=== PATIENT | male | born 1950 | race Caucasian/White ===

== ENCOUNTER 2018-02-23 13:58 | Emergency (ER) | payer MEDICARE, SELFPAY ==
[2018-02-23 14:00] VITALS: BP 136/82; PULSE 52; RESP 16; TEMP 36.7; O2SAT 98
--- NOTE | 2018-02-23 14:32 | DI.REPORT_ITS ---
SYMPTOM/DIAGNOSIS: PUNCTURE LT THENAR EMINENCE AT MCP JOINT, BALJEET NAIL LEFT HAND: There is no evidence of a soft tissue foreign body. There is no evidence of a fracture or dislocation.
--- NOTE | 2018-02-23 16:19 | ED.GENADUL_ITS ---
Disposition Clinical Impression: Puncture wound Disposition: HOME Condition: Good Instructions: Puncture Wound (ED) Additional Instructions: Please take the antibiotic as directed. No matter what it is imperative that he follow-up here in the emergency department or with your primary care provider tomorrow to reevaluate your wound on your hand. If you notice any worsening of your symptoms worsening of your pain, redness, swelling, fever chills return immediately to the emergency department. If you notice any worsening of your symptoms, or any new symptoms such as vomiting, diarrhea, fever, chills, shortness of breath, chest pain, numbness, weakness, or fainting , please return immediately to the emergency department for reevaluation. Please follow up with your primary care provider as soon as possible for reassessment and reevaluation. As always, it was a pleasure participating in your medical care today. Prescriptions: Cephalexin [Keflex] 500 mg PO HOLD #40 cap Referrals: Rebecca Beltrán MD [Primary Care Provider] - Medical Decision Making - Medical Decision Making This is a pleasant 67-year-old male who presents for evaluation of puncture wound. Roughly 3 hours prior to arrival a slightly tanja nail was accidentally injected into his left thenar eminence. He immediately pulled it out. There was some bleeding at the time. He has been icing the wound ever since but is noted some mild pain on the dorsal aspect of his thenar eminence at the MCP joint. There is pain with movement. X-ray was performed of the hand, and no significant abnormalities were noted. No evidence of foreign bodies. I did review the images personally with the radiologist, there is no evidence of foreign body. I did contact Dr. Meza, and discussed the case with him. He does not recommend bringing the patient to an OR for surgical washout, but he does recommend starting antibiotics which I do agree with. I think it is imperative that this patient of close follow-up. The patient's hand was irrigated with an 18-gauge catheter with a chlorhexidine rinse. He was injected directly into the wound site, to extravasate any potential foreign bodies. None were removed, the area was irrigated with copious amounts normal saline. The patient has done well. We have given him his first dose of Keflex here, will be discharged home with Keflex. We had a long discussion regarding red flags which to return the patient understands. I have discussed with him the imperative nature of returning tomorrow to either the ER or his primary care provider for reevaluation of his wound to evaluate for any potential worsening infection. I have extensively reviewed the treatment plan and discharge instructions with the patient. I have addressed all patient concerns at this time. The patient was made aware of what symptoms to monitor for that would warrant a return to the emergency department. Discussed the plan with the patient, they demonstrate verbal understanding and agreement with our assessment and plan at this time. History of Present Illness - General Chief complaint: Laceration Stated complaint: PUNCTURE WOUND Time Seen by Provider: 02/23/18 14:31 - History of Present Illness Initial comments: This is a pleasant 67-year-old male who presents for evaluation of left hand pain. He is right-hand dominant. He states that roughly 3-4 hours prior to arrival he was making an addition on the house when a minimally tanja nail stabbed into his left hand, by his thenar eminence. He states that he immediately pulled it out within 1 second. Since then he has had mild pain and swelling, but oddly enough the pain is on the dorsal aspect of his hand whereas the puncture site was on the ventral aspect. Patient denies any fevers or chills. He denies any immunosuppression or immunosuppression medications. The patient denies any other complaints at this time. No radiation of his pain. Pain is made worse with movement. It is improved with ice. Tetanus shot is not up-to-date at this time. - Related Data Hydrocortisone Acetate [Hydrocortisone] 28 gm TP DAILY PRN PRN 06/15/16 Atorvastatin [Lipitor] 20 mg PO HS 09/22/16 Pantoprazole [Protonix] 40 mg PO DAILY 09/22/16 Sildenafil [Viagra] 100 mg PO PRN PRN 09/22/16 Mirabegron [Myrbetriq] 50 mg PO DAILY #90 tab-cap 03/29/17 Cephalexin [Keflex] 500 mg PO HOLD #40 cap 02/23/18 Allergies Allergy/AdvReac Type Severity Reaction Status Date / Time No Known Drug Allergies Allergy Unverified 12/19/17 13:28 Review of Systems Other: 10 point review of systems was performed, pertinent positives and negatives are noted in the history of present illness. General Exam - Other Other exam information: 1.Const: Well-nourished, Well-developed, appearing stated age 2.Eyes: PERRL, no conjunctival injection, and symmetrical lids. 3.ENT: Atraumatic external nose and ears. Moist MM. Neck: Symmetric, trachea midline, No thyromegaly. 4.CVS: +S1/S2, No murmurs or gallops. Peripheral pulses 2+ and equal in all extremities. Brisk capillary refill in all extremities. 5.RESP: Unlabored respiratory effort. Clear to auscultation bilaterally. No wheezes rales or rhonchi 6.GI: Soft, Nontender/Nondistended, No hepatosplenomegaly. No guarding or rebound. 7.MSK: Normocephalic the patient demonstrates a small 1 cm puncture wound on the thenar eminence of the left hand on the volar aspect. No swelling, or active bleeding. No erythema. The patient's pain is actually located on the dorsal aspect of the MCP joint where there is no evidence of perforation, or puncture wound. Pain is present but mild for movement of the left thumb in all directions. He still demonstrates good thumb strength in flexion extension and opposition. Abduction and abduction as well. He is able to contact all fingers well and demonstrates normal movements and good sensation and two-point discrimination. No crepitus is noted. No foreign bodies are present. 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 Sensation grossly intact, no focal neurologic deficits. .Psych: (AAO) x3. Appropriate mood and affect Course Vital Signs - 24 hr 02/23/18 14:00 Temperature 36.7 C Pulse 52 L Respiratory 16 Rate Blood Pressure 136/82 Pulse Oximetry 98
[2018-02-23] MEDS: Cephalexin 500 MG CAP PO (16:22)
== END 2018-02-23 16:33 | disposition home or self-care (01) ==
PROVIDERS: Emergency Provider Student in an Organized Health Care Education/Training Program; PCP Family Medicine
DX: S61.032A Puncture wound without foreign body of left thumb without damage to nail, initial encounter (principal); W29.4XXA Contact with nail gun, initial encounter; J44.9 Chronic obstructive pulmonary disease, unspecified
CPT/HCPCS: 73130; 90471; 99283; 99284

== ENCOUNTER 2018-08-17 07:43 | Outpatient (REF) | payer MEDICARE, SELFPAY ==
[2018-08-17 12:54] LABS: Anion Gap 8.4 mmol/L (3-11); BUN 15 mg/dL (7-18); CO2 29.6 mmol/L (21.0-32.0); CREATININE 1.17 mg/dL (0.70-1.30); Chloride 104 mmol/L (98-107); Cholesterol 175 mg/dL (50-200); Glucose 105 mg/dL (70-100); HDL Cholesterol 38 mg/dL (40-60); LDL CHOLESTEROL 121 mg/dL (<100); Potassium 4.1 mmol/L (3.5-5.1); Sodium 142 mmol/L (136-145); TSH (W/Ref FT4) 4.42 uIU/mL (0.358-3.74); Triglyceride 101 mg/dL (30-150)
[2018-08-17 13:21] LABS: FREE T4 1.05 ng/dL (0.76-1.46)
== END 2018-08-17 08:03 ==
LOC: NCHCN 07:43
PROVIDERS: PCP Family Medicine; Visit Provider Family Medicine
DX: E78.5 Hyperlipidemia, unspecified (principal); R94.6 Abnormal results of thyroid function studies; Z79.899 Other long term (current) drug therapy
CPT/HCPCS: 80048; 80061; 83721; 84439; 84443

== ENCOUNTER → 2018-10-02 08:25 | Outpatient (BNVA) | payer MEDICARE, SELFPAY | PROVIDERS: PCP Family Medicine; Referring Provider Family Medicine; Visit Provider Nurse Practitioner Gerontology | DX: N32.81 Overactive bladder (principal); N40.1 Benign prostatic hyperplasia with lower urinary tract symptoms; N13.8 Other obstructive and reflux uropathy | CPT/HCPCS: 51798; 81003; 99214 ==

== ENCOUNTER → 2018-11-29 08:46 | Outpatient (BNVA) | payer MEDICARE, SELFPAY | PROVIDERS: PCP Family Medicine; Visit Provider Nurse Practitioner Gerontology | DX: R35.0 Frequency of micturition (principal) | CPT/HCPCS: 99213 ==

== ENCOUNTER 2019-08-22 07:36 | Outpatient (REF) | payer MEDICARE, SELFPAY ==
[2019-08-22 12:18] LABS: Hemoglobin A1C 5.8 % (3.8-5.6)
[2019-08-22 12:34] LABS: ALT 26 U/L (16-63); AST 16 U/L (15-37); Albumin 3.9 g/dL (3.4-5.0); Alkaline Phosphatase 83 U/L (46-116); Anion Gap 7.9 mmol/L (3-11); BUN 14 mg/dL (7-18); CO2 29.1 mmol/L (21.0-32.0); CREATININE 1.01 mg/dL (0.70-1.30); Calcium 8.5 mg/dL (8.5-10.1); Calculated LDL 114 mg/dL (<100); Chloride 108 mmol/L (98-107); Cholesterol 164 mg/dL (<200); Glucose 101 mg/dL (74-106); HDL Cholesterol 35 mg/dL (40-60); Potassium 4.8 mmol/L (3.5-5.1); Sodium 145 mmol/L (136-145); Total Protein 6.6 g/dL (6.4-8.2); Triglyceride 75 mg/dL (<150)
== END 2019-08-22 07:56 ==
LOC: NCHCN 07:36
PROVIDERS: PCP Family Medicine; Visit Provider Family Medicine
DX: E78.5 Hyperlipidemia, unspecified (principal); R73.03 Prediabetes
CPT/HCPCS: 80053; 80061; 83036

== ENCOUNTER → 2019-09-24 13:51 | Outpatient (BNVA) | payer MEDICARE, SELFPAY | PROVIDERS: PCP Family Medicine; Referring Provider Family Medicine; Visit Provider Nurse Practitioner Gerontology | DX: R35.0 Frequency of micturition (principal); N52.9 Male erectile dysfunction, unspecified | CPT/HCPCS: 99213 ==

== ENCOUNTER 2020-08-27 07:50 | Outpatient (REF) | payer OTHER, SELFPAY ==
[2020-08-27 14:33] LABS: Anion Gap 8.1 mmol/L (3-11); BUN 22 mg/dL (7-18); CO2 27.9 mmol/L (21.0-32.0); CREATININE 1.1 mg/dL (0.70-1.30); Calcium 8.9 mg/dL (8.5-10.1); Calculated LDL 179 mg/dL (<100); Chloride 106 mmol/L (98-107); Cholesterol 240 mg/dL (<200); Glucose 107 mg/dL (74-106); HDL Cholesterol 37 mg/dL (40-60); Potassium 4.3 mmol/L (3.5-5.1); Sodium 142 mmol/L (136-145); TSH (W/Ref FT4) 4.39 uIU/mL (0.36-3.74); Triglyceride 121 mg/dL (<150)
[2020-08-27 14:49] LABS: FREE T4 0.89 ng/dL (0.76-1.46)
== END 2020-08-27 07:51 | disposition home or self-care (01) ==
LOC: NCHCN 07:50
PROVIDERS: PCP Family Medicine; Visit Provider Family Medicine
DX: R73.03 Prediabetes (principal); R94.6 Abnormal results of thyroid function studies; E78.5 Hyperlipidemia, unspecified; Z79.899 Other long term (current) drug therapy
CPT/HCPCS: 80048; 80061; 83036; 84439; 84443

== ENCOUNTER 2020-12-03 09:05 | Outpatient (REF) | payer MEDICARE, SELFPAY ==
[2020-12-03 16:12] LABS: Calculated LDL 103 mg/dL (<100); Cholesterol 157 mg/dL (<200); HDL Cholesterol 35 mg/dL (40-60); Triglyceride 95 mg/dL (<150)
== END 2020-12-03 09:06 | disposition home or self-care (01) ==
LOC: NCHCN 09:05
PROVIDERS: PCP Family Medicine; Visit Provider Family Medicine
DX: E78.5 Hyperlipidemia, unspecified (principal); Z79.899 Other long term (current) drug therapy
CPT/HCPCS: 80061

== ENCOUNTER 2021-11-03 17:14 | Outpatient (REF) | payer MEDICARE, SELFPAY ==
[2021-11-03 22:37] LABS: Hemoglobin A1C 5.9 % (<5.7)
[2021-11-03 22:48] LABS: Anion Gap 6.1 mmol/L (3-11); BUN 21 mg/dL (7-18); CO2 29.9 mmol/L (21.0-32.0); CREATININE 1.2 mg/dL (0.70-1.30); Calcium 8.7 mg/dL (8.5-10.1); Calculated LDL 103 mg/dL (<100); Chloride 106 mmol/L (98-107); Cholesterol 157 mg/dL (<200); Estimated GFR 59.86 (mL/min/1.73m2); Glucose 101 mg/dL (74-106); HDL Cholesterol 37 mg/dL (40-60); Potassium 5.1 mmol/L (3.5-5.1); Sodium 142 mmol/L (136-145); Triglyceride 88 mg/dL (<150)
== END 2021-11-03 17:15 | disposition home or self-care (01) ==
LOC: NCHCN 17:14
PROVIDERS: PCP Family Medicine; Visit Provider Family Medicine
DX: E78.5 Hyperlipidemia, unspecified (principal); R73.03 Prediabetes; Z79.899 Other long term (current) drug therapy; F10.10 Alcohol abuse, uncomplicated
CPT/HCPCS: 80048; 80061; 83036

== ENCOUNTER → 2022-02-04 00:48 | Outpatient (CLI) | payer MEDICARE, SELFPAY ==
--- NOTE | 2022-02-04 | DI.US_ITS ---
Exam(s) US AAA SCREENING EXAM: US AAA SCREENING CLINICAL HISTORY: SCREENING FOR AAA,FORMER SMOKER, Z87.891 COMPARISON: US RENAL ULTRASOUND from 10/01/2010 FINDINGS: There is no evidence of abdominal aortic aneurysm. Maximum external diameter of the abdominal aorta is 2.5 cm, proximally. Distal aorta tapers normally. The visualized common iliac arteries are not d ilated. IMPRESSION: No evidence of abdominal aortic aneurysm. DATA REPOSITORY:
--- OUTSIDE RECORDS SUMMARY | 2022-02-04 00:53 | XMS_ITS | Encounter Summary ---
:[address] [facility] Address [address] [place] [address] Care Team Providers Name Role Phone Unavailable Primary Care Provider Unavailable Encounter Details Date Type Department Care Team Description 08/19/2016 Hospital Encounter [facility] Unknown, Provider, [facility] [phone] [place] [address] (Work) [phone] Social History Tobacco Use Types Packs/Day Years Used Date Never Assessed Sex Assigned at Date Recorded Not on file documented as of this encounter Discharge Disposition Disposition Code Departure Means Destination Home or Self [facility] documented in this encounter Plan of Treatment Not on filedocumented as of this encounter Visit Diagnoses Not on filedocumented in this encounter
--- OUTSIDE RECORDS SUMMARY | 2022-02-04 00:54 | XMS_ITS | Encounter Summary ---
:1950 Author Organization [facility] Address [address] [place] [address] Care Team Providers Name Role Phone Unknown, Provider Primary Care Provider Encounter Details Date Type Department Care Team Description 08/19/2016 Results Only [facility]ico Ricardo MD [phone] [facility] [address] [place] [address] (Wo rk) Social History Tobacco Use Types Packs/Day Years Used Date Never Assessed Sex Assigned at Date Recorded Not on file documented as of this encounter Plan of Treatment Not on filedocumented as of this encounter Procedures Procedure Name Priority Date/Time Associated Diagnosis Comme [facility] SURGICAL PATHOLOGY Routine 08/19/2016 20:25 Resul ts for this EST procedure are i n the results section. documented in this encounter Results SURGICAL PATHOLOGY (08/19/2016 20:25 EST) Pathology Report: SURGICAL PATHOLOGY REPORT [facility] Reports generated via electronic interface contain gustavo ginal data; LABORATORY however they are lacking the format of the original re port. SERVICES Caution should be taken when reading/interpreting unfo rmatted reports. Name: ? ASIA BRITO ? Accession #: ? [id number] ? : ? 1950 (Age: 66) ??M ? Collect Date: ? 08/19/2016 ? Location: ? [facility] ? Receive Date: ? 08/20/2016 ? Provider: MELVIN HENAO MD Copy to: ? Final Pathologic Diagnosis: A. ??DUODENUM, 2ND PORTION, BIOPSY: - Duodenal mucosa with no specific pathologic features . B. ??STOMACH, ANTRUM AND BODY, BIOPSY: - Gastric antral mucosa with reactive (chemical) gastr opathy. - Gastric body mucosa with no specific pathologic feat ures. C. ??ESOPHAGUS, DISTAL, BIOPSY: - Squamocolumnar junctional mucosa with reflux esophag itis. - Negative for intestinal metaplasia; Negative for dys plasia. D. ??ESOPHAGUS, MID, BIOPSY: - Superficial fragment of sq uamous mucosa with no specific pathologic features. Document reviewed and electronically signed by: ANTONIO IRIZARRY MD Report ??Date: 08/24/2016 16:45 By the signature above, the attending physician certif ies that he/she has personally conducted a gross and/or microscopic examin ation of the described specimens and rendered or confirmed the above diagnosi s. Specimen(s) Received: A. ??2nd portion of duodenum B. ??Antrum and body C. ??Distal esophagus D. ??Mid esophagus Clinical History: Odynophagia; GERD; clinical diagnosis code: R13.10, K2 1.9 Gross Description: A. ?Received in formalin labelled with proper p atient identification (initials W, R) and 2nd por tion of duodenum are two pink-benjamin tissues, each 0.2 x 0.2 x 0.2 cm. Entirely submitted in A1. B. ?Received in formalin labelled with proper p atient identification (initials W, R) and antrum and body are three pink-benjamin tissues (0.3 x 0.2 x 0.1 cm, 0.2 x 0.1 x 0.1 cm, and 0.1 x 0. 1 x 0.1 cm). Entirely submitted in B1. C. ?Received in formalin labelled with proper p atient identification (initials W, R) and distal esophagus are two pink-benjamin tissues (0.3 x 0.1 x 0.1 cm and 0.1 x 0.1 x 0.1 cm). Entirely submitted in C1. D. ?Received in formalin labelled with proper p atient identification (initials W, R) and mid esophagus is a single minuscule piece of translucent tissue measuring less than 0.1 x 0.1 x 0.1 cm. Submitt ed intact in D1. Dr. Martinez 08/21/2016 9:11 AM End of Report Specimen Performing Organization Address City/State/ZIP Code Phon e Number [facility] [address] [place] [address] SERVICES documented in this encounter Visit Diagnoses Not on filedocumented in this encounter Care Teams [employer] Brake Coupler Relationship Specialty Start Date End Date Unknown, Provider, PCP - General 08/20/16 documented as of this encounter
--- OUTSIDE RECORDS SUMMARY | 2022-02-04 00:54 | XMS_ITS | Encounter Summary ---
:1950 Author Organization [facility] [place] [address] Care Team Providers Name Role Phone Parviz Villafuerte MD Primary Care Provider Reason for Referral Diagnostic Test (Routine) - Closed Specialty Diagnoses / Procedures Referred By Contact Refer red To Contact Diagnoses Bradycardia Lack of energy Abnormal ECG Be Collier MD [facility] Non-Inv Card Lab Procedures Echocardiogram Stress (Treadmill) [facility] [place] [address] [place] [address] Referral ID Status Reason Start Date Expiration Date Visits V isits Requested Authorized [id number] Closed Specialty 11/25/2015 11/24/2016 1 1 Service Requested Reason for Visit Diagnostic Test (Routine) - Closed Specialty Diagnoses / Procedures Referred By Contact Refer red To Contact Diagnoses Bradycardia Lack of energy Abnormal ECG Be Collier MD [facility] Non-Inv Card Lab Procedures Echocardiogram Stress (Treadmill) [facility] [place] [address] [place] [address] Referral ID Status Reason Start Date Expiration Date Visits V isits Requested Authorized [id number] Closed Specialty 11/25/2015 11/24/2016 1 1 Service Requested Encounter Details Date Type Department Care Team Description 12/23/2015 Hospital Encounter Non-Invasive Wahrenberger, Bradycar grant; Cardiology Lab Kate rL MD Lack of energy; [facility] Abnormal ECG Hospital CENTER [facility] [place] [address] [place] [phone] (Work) [phone] Social History Tobacco Use Types Packs/Day Years Used Date Former Smoker Comments: quit 20 years ago Sex Assigned at Date Recorded Not on file documented as of this encounter Medications at Time of Discharge Medication Sig Dispensed Refills Start Date End Date ibuprofen (ADVIL;MOTRIN) Take 200 mg by mouth 0 200 mg Tablet every 6 hours as needed for Pain. documented as of this encounter Plan of Treatment Not on filedocumented as of this encounter Procedures Procedure Name Priority Date/Time Associated Comments Diagnosis STRESS ECHOCARDIOGRAM W Routine 12/23/2015 2:00 PM Nino cardia Results for this CONTRAST LMTD SPEC EDT Lack of energ y procedure are in DOPP,COLOR DOPP Abnormal ECG the results section. documented in this encounter Results STRESS ECHOCARDIOGRAM W CONTRAST LMTD SPEC DOPP,COLOR DOPP (12/23/2015 2:00 PM EDT) P athologist Signature EF 65 [facility] SYSTEM Specimen (Source) Anatomical Location Collection Method / Collectio n Time Received Time / Laterality Volume 12/23/2015 Narrative HEARTLAB SYSTEM - 12/23/2015 2:26 PM EDT Procedure: ?Stress Echocardiogram Patient: ?PROSPER Davey ? (Age): 1950(65y) Med Rec#: ? [id number] ?Sex: ?M ? [place] ? [facility]Ht / Wt: ??168(cm)/80(kg) Pt. Loc: ?Echo Lab ?BSA: ?1.9 Study Date: ?? 12/23/2015 ?Pt. Type: Tape: ? Referring: Be Collier Referring: PARVIZ VILLAFUERTE E Reading: Toi Newsome ([id number]) Marketing Analyst: Scott Berg Clinic Lead: Ayden Mayer MS, [facility] Diagnosis: *ICD-10-PCS Other fatigue (R53.83) *ICD-10-PCS Abnormal electrocardiogram [ECG] [EKG] (R94.31) *ICD-10-PCS Bradycardia, unspecified (R 00.1) CPT Codes: *Stress Echo (44778) *Color Doppler (63839) *Doppler LTD (75157) *ECG Interpretation (85510) *Definity (50193TJ) Stage ? BP ?HR ? Rest ?126/88 ?63 ? Peak ?202/100 ? 148 ? Recovery ?142/80 ?80 ? SUMMARY: 1. BASELINE: Normal global and segmental biventricular systolic function with an estimated left ventricular eject ion fraction of 65%. 2. STRESS: Patient followed a Charles prot ocol. ??The total exercise duration was: 9:00 mins. ??The patient a chieved a level of 10 METS. Exercise capacity was good. ??The patien t achieved a maximum heart rate of 148 which is 95% of the maximum predi cted heart rate (156 beats/min). The target heart rate was achieved. ??Th e study was terminated because of dyspnea. ??The patient did not express f eelings of chest discomfort. There was 1.[address] segment d epression in the inferior leads in recovery. 3. ECHOCARDIOGRAPHIC FINDINGS: Global le ft ventricular systolic function appears hyperdynamic. ??There are no lef t ventricular segmental wall motion abnormalities. 4. IMPRESSION: There is no echocardiogra phic evidence of ischemia at this diagnostic level of stress. 5. See remainder of report for additiona l findings. Findings Rest: Left Ventricle: ? The left ventricle is probably normal in size. ?There is normal global left ventri cular systolic function. ??Ejection fraction is estimated to be 65%. ?There are no left ventricular segm ental wall motion abnormalities. ?Doppler assessment is consistent w ith normal left sided filling pressure. Left Atrium: ? The left atrium is pr obably normal in size. Right Ventricle: ? The right ventric le is probably normal in size. ?Right ventricular global systolic function is probably normal. Right Atrium: ? The right atrium is probably normal in size. Aortic Valve: ? The aortic valve is trileaflet. The leaflets are thin with normal excursion. There is no aorti c stenosis or regurgitation present. Mitral Valve: ? The mitral valve debby ears normal in structure and function. ?There is trace mitral regurgitatio n present. Tricuspid Valve: ? The tricuspid cullen ve appears normal in structure and function. ?There is trace tricuspid regurgita tion present. Pulmonic Valve: ? There is trace pul jyoti regurgitation present. Pericardium: ? There is no pericardi al effusion. Venous: ? The inferior vena cava debby ears normal in size. ?There is a greater than 50% respir atory change in the inferior vena cava dimension. Stress: ? EKG: sinus bradycardia. ?The patient's oxygen saturation wa s ??98%. ?The patient is on no cardiac or bl ood pressure medications. Misc: ? See remainder of report for additional findings. ?Definity contrast (one 1.5 ml vial )was used to enhance endocardial definition. Excess contrast was discarde d. ?Stress echo, limited spectral Dopp ler, color Doppler and ECG interpretation performed. Findings Peak: Predicted Values:The patient achieved a maximum heart rate of 148 which is 95% of the maximum predicted heart ra te (156 beats/min). ??The target heart rate was achieved. Left Ventricle: ? Global left ventri cular systolic function appears hyperdynamic. ?There are no left ventricular segm ental wall motion abnormalities. Stress: ? Patient followed a Charles p rotocol. ?The patient exercised into stage 3 . ?The total exercise duration was:9: 00 mins. ?The study was terminated because o f dyspnea. ?The patient did not express feelin gs of chest discomfort. ?The patient experienced shortness of breath. ?The blood pressure response was hy pertensive. ?Exercise capacity was good. ?The patient achieved a level of 10 METS. ?There were occasional atrial cata ture contractions. ?There were occasional ventricular premature beats. ?This was a positive electrocardiog raphic stress test. ?The patient's oxygen saturation wa s 98%. Diastolic/Systolic Function ?Value ?Units (Range) ? MV E-wave Vmax ?0.6 ?m/sec ? MV deceleration alib014 ?msec ? MV A-wave Vmax ?0.5 ?m/sec ? MV E:A ratio ?1.3 ?ratio ? LV E:e' septal ratio6.7 ?ratio ? Tricuspid Valve ?Value ?Units (Range) ? TR Vmax ? 2.7 ?m/sec ? TR peak gradient ?28 ? mmHg ? RAP ? 3 ?mmHg ? RVSP ?31 ? mmHg ? Tricuspid Valve ?Value ?Units (Range) ? TR Vmax ? 3.3 ?m/sec ? TR peak gradient ?44 ? mmHg ? RAP ? 3 ?mmHg ? RVSP ?47 ? mmHg ? Wall Motion: Segment Name ?Rest ?Peak ? Base-Anteroseptal ?? Normal ?Normal ? Base-Anterior ? Normal ?Normal ? Base-Anterolateral ??Normal ?Normal ? Base-Posterolateral Normal ?Normal ? Base-Inferior ? Normal ?Normal ? Base-Inferoseptal ?? Normal ?Normal ? Mid-Anteroseptal ?Normal ?Normal ? Mid-Anterior ?Normal ?Normal ? Mid-Anterolateral ?? Normal ?Normal ? Mid-Posterolateral ??Normal ?Normal ? Mid-Inferior ?Normal ?Normal ? Mid-Inferoseptal ?Normal ?Normal ? [place]-Septal ? Normal ?Normal ? [place]-Anterior ? Normal ?Normal ? [place]-Lateral ?Normal ?Normal ? [place]-Inferior ? Normal ?Normal ? [place]-Tip ?Normal ?Normal ? This report has been electronically sign ed by: _ Toi Newsome MD ? 12/23/2015 1 4:26:11 Images reviewed and interpretation [facility] Cardiac Ultrasound Laboratory Procedure Note Toi Newsome MD - 12/23/2015Format ting of this note might be different from the original. Procedure: Stress Echocardiogram Patient: PROSPER CASTELLANO(Age): [birth year](65y) Med Rec#: [id number] Sex: M [place] [facility] [place] Ht / Wt: 168(cm)/80(kg) Pt. Loc: Echo Lab BSA: 1.9 Study Date: 12/23/2015 Pt. Type: Tape: Referring: Be Collier Referring: PARVIZ VILLAFUERTE E Reading: Toi Newsome ([id number]) Marketing Analyst: Scott Berg Clinic Lead: Ayden Mayer MS, [facility] Diagnosis: *ICD-10-PCS Other fatigue (R53.83) *ICD-10-PCS Abnormal electrocardiogram [ECG] [EKG] (R94.31) *ICD-10-PCS Bradycardia, unspecified (R 00.1) CPT Codes: *Stress Echo (20787) *Color Doppler (12615) *Doppler LTD (85918) *ECG Interpretation (59596) *Definity (40448DR) Stage BP HR Rest 126/88 63 Peak 202/100 148 Recovery 142/80 80 SUMMARY: 1. BASELINE: Normal global and segmental biventricular systolic function with an estimated left ventricular eject ion fraction of 65%. 2. STRESS: Patient followed a Charles prot ocol. The total exercise duration was: 9:00 mins. The patient ach ieved a level of 10 METS. Exercise capacity was good. The patient achieved a maximum heart rate of 148 which is 95% of the maximum predi cted heart rate (156 beats/min). The target heart rate was achieved. The study was terminated because of dyspnea. The patient did not express fee lings of chest discomfort. There was 1.[address] segment d epression in the inferior leads in recovery. 3. ECHOCARDIOGRAPHIC FINDINGS: Global le ft ventricular systolic function appears hyperdynamic. There are no left ventricular segmental wall motion abnormalities. 4. IMPRESSION: There is no echocardiogra phic evidence of ischemia at this diagnostic level of stress. 5. See remainder of report for additiona l findings. Findings Rest: Left Ventricle: The left ventricle is pr obably normal in size. There is normal global left ventricular systolic function. Ejection fraction is estimated to be 65%. There are no left ventricular segmental wall motion abnormalities. Doppler assessment is consistent with n ormal left sided filling pressure. Left Atrium: The left atrium is probably normal in size. Right Ventricle: The right ventricle is probably normal in size. Right ventricular global systolic funct ion is probably normal. Right Atrium: The right atrium is probab ly normal in size. Aortic Valve: The aortic valve is trilea flet. The leaflets are thin with normal excursion. There is no aorti c stenosis or regurgitation present. Mitral Valve: The mitral valve appears n ormal in structure and function. There is trace mitral regurgitation pre sent. Tricuspid Valve: The tricuspid valve edbby ears normal in structure and function. There is trace tricuspid regurgitation present. Pulmonic Valve: There is trace pulmonic regurgitation present. Pericardium: There is no pericardial eff usion. Venous: The inferior vena cava appears n ormal in size. There is a greater than 50% respiratory change in the inferior vena cava dimension. Stress: EKG: sinus bradycardia. The patient's oxygen saturation was 98% . The patient is on no cardiac or blood p ressure medications. Misc: See remainder of report for additi onal findings. Definity contrast (one 1.5 ml vial)was used to enhance endocardial definition. Excess contrast was discarde d. Stress echo, limited spectral Doppler, color Doppler and ECG interpretation performed. Findings Peak: Predicted Values:The patient achieved a maximum heart rate of 148 which is 95% of the maximum predicted heart ra te (156 beats/min). The target heart rate was achieved. Left Ventricle: Global left ventricular systolic function appears hyperdynamic. There are no left ventricular segmental wall motion abnormalities. Stress: Patient followed a Charles protoco l. The patient exercised into stage 3. The total exercise duration was:9:00 mi ns. The study was terminated because of dys pnea. The patient did not express feelings of chest discomfort. The patient experienced shortness of br eath. The blood pressure response was hyperte nsive. Exercise capacity was good. The patient achieved a level of 10 METS . There were occasional atrial premature contractions. There were occasional ventricular cata ture beats. This was a positive electrocardiographi c stress test. The patient's oxygen saturation was 98% . Diastolic/Systolic Function Value Units (Range) MV E-wave Vmax 0.6 m/sec MV deceleration [id number] msec MV A-wave Vmax 0.5 m/sec MV E:A ratio 1.3 ratio LV E:e' septal ratio6.7 ratio Tricuspid Valve Value Units (Range) TR Vmax 2.7 m/sec TR peak gradient 28 mmHg RAP 3 mmHg RVSP 31 mmHg Tricuspid Valve Value Units (Range) TR Vmax 3.3 m/sec TR peak gradient 44 mmHg RAP 3 mmHg RVSP 47 mmHg Wall Motion: Segment Name Rest Peak Base-Anteroseptal Normal Normal Base-Anterior Normal Normal Base-Anterolateral Normal Normal Base-Posterolateral Normal Normal Base-Inferior Normal Normal Base-Inferoseptal Normal Normal Mid-Anteroseptal Normal Normal Mid-Anterior Normal Normal Mid-Anterolateral Normal Normal Mid-Posterolateral Normal Normal Mid-Inferior Normal Normal Mid-Inferoseptal Normal Normal [place]-Septal Normal Normal [place]-Anterior Normal Normal [place]-Lateral Normal Normal [place]-Inferior Normal Normal [place]-Tip Normal Normal This report has been electronically sign ed by: _ Toi Newsome MD 12/23/2015 14:26:1 1 Images reviewed and interpretation indiajaspreet rendon [facility] Cardiac Ultrasound Laboratory Be Collier MD ECHO ORDERABLES Performing Organization Address City/State/ZIP Code Phon e Number HEARTLAB SYSTEM documented in this encounter Visit Diagnoses Diagnosis Bradycardia Other specified cardiac dysrhythmias Lack of energy Other malaise and fatigue Abnormal ECG Nonspecific abnormal electrocardiogram ( ECG) (EKG) documented in this encounter Administered Medications Inactive Administered Medications - up to 3 most recent administrations Medication Order MAR Action Action Date Dose Rate Site perflutren lipid microspheres Given 12/23/2015 1:41 PM EDT 0.8 m Ls (DEFINITY) injection 0.8 mL 0.8 mL, Intravenous, ONCE PRN, 1 dose, Starting on Tue12/23/15 at 1400, Until Tue12/23/15 at 1341, Other, for enhancement of sub-optimal echo images, Echo Lab (Intra-Procedure), Routine documented in this encounter Care Teams Photoengraving Photographer Relationship Specialty Start Date End Date Parviz Villfauerte MD PCP - General Family Medicine 11/19/15 documented as of this encounter
--- OUTSIDE RECORDS SUMMARY | 2022-02-04 00:54 | XMS_ITS | Encounter Summary ---
:1950 [place] [address] Care Team Providers Name Role Phone Faith Villafuerte MD Primary Care Provider Encounter Details Date Type Department Care Team Description 12/23/2015 Office Visit Cardiology [place] [facility] Be Collier MD [facility] [place] [address] CARDIOLOGY DEPT. [phone] [place], [place] [address] (Wo rk) Social History Tobacco Use Types Packs/Day Years Used Date Former Smoker Comments: quit 20 years ago Sex Assigned at Date Recorded Not on file documented as of this encounter Last Filed Vital Signs Vital Sign Reading Time Taken Comments Blood Pressure 110/70 12/23/2015 3:14 PM EDT Pulse 67 12/23/2015 3:14 PM EDT Temperature - - Respiratory Rate - - Oxygen Saturation 97% 12/23/2015 3:14 PM EDT Inhaled Oxygen Concentration - - Weight 81.2 kg (179 lb) 12/23/2015 3:14 PM EDT Height - - Body Mass Index 28.89 11/25/2015 4:02 PM EDT documented in this encounter Progress Notes Be Collier MD - 12/23/2015 3:46 PM EDT Images from the original note were not included. [facility] [place] [address] CARDIOLOGY OUTPATIENT FOLLOW-UP NOTE Kyler Brito [id number] PCP: FAITH VILLAFUERTE MD 12/23/2015 PRIMARY CARE PROVIDER: FAITH VILLAFUERTE MD PROBLEM LIST: Patient Active Problem List Diagnosis ??? Bradycardia ??? Fatigue MEDICATIONS: Current Outpatient Prescriptions Medication Sig Dispense Refill ??? ibuprofen (ADVIL;MOTRIN) 200 mg Tablet Take 200 mg by mouth every 6 hours as needed for Pain. No current facility-administered medications for this visit. SUBJECTIVE: This 65-year-old man comes for a brief follow-up visit. He was noted to be bradycardic in October in the context of watching some sutures be removed from his 's hand. This was accompaniedby diaphoresis and lightheadedness. The heart rate check showed that his rate was in the 40s. His blood pressure was normal. He had further bradycardia the next day and this led to his attention that his local hospital where he was noted to have a blood pressure of 150/78 pulse of forty-eight. He was managed conservatively, set up for a Holter monitor which showed a heart rate is slows forty-five butan average of sixty-one, and had only rare PACs and PVCs. He had no symptoms during the study. He has since felt well. He reports occasional lightheadedness. He is lacking ambition. His EKG done at the time of my last visit showed some mild ST depression in his anterolateral leads. To further evaluate, he was scheduledfor both the Zio patch and a stress echocardiogram. There was concern about coronary disease becauseof his EKG findings. He says that he has continued to feel well. He describes no new symptoms. OBJECTIVE: Vital Signs: BP 110/70 (BP Location (NBP): Left arm, Patient Position: Sitting, BP Cuff Sizes: Adult(25-34 cm)) Pulse 67 Wt 81.2 kg (179 lb) SpO2 97% BMI 28.89 kg/m2 Physical Exam: On exam he appeared in good health and spirits. Vital signs as documented. Skin warm and dry and without overt rashes. Neck without JVD. Lungs clear. Heart exam notable for regular rhythm, normal sounds and absence of murmurs, rubs or gallops. Abdomen unremarkable and without evidence of organomegally, masses, or abdominal aortic enlargement. Extremities non-edematous. Zio patch: This was started on November 25, 2015 and involved fourteen days of recording. His low, average, maximal heart rate were thirty-nine, sixty-five, and one hundred twenty-one. He had rare PACs withoccasional short runs of SVT. He had no pauses. He had seven hundred twenty-nine PVCs with one triplet and no runs of ventricular tachycardia. He had no significant pauses. Stress echocardiogram: Performed earlier today, this showed a normal left ventricle at baseline. He had no valvular disease. He exercised to 95% of his age-predicted maximal heart rate, had some horizontal ST segment depression in his inferior leads, but showed a normal echocardiographic response, failing to show evidence of ischemia. DIAGNOSES: 1. Tachy-fabio syndrome 2. Unexplained fatigue IMPRESSIONS: Overall he is doing well. He did show some fairly wide swings between being bradycardicand having some short runs of SVT, consistent with a tachycardia bradycardia picture. At this point he is having minimal symptoms and I do not think anything further needs to be done. He will keep an eye on things and contact me if anything changes. PLAN: 1. No change in medications or further testing 2. Cardiology follow-up only as needed documented in this encounter Plan of Treatment Not on filedocumented as of this encounter Visit Diagnoses Diagnosis Bradycardia Other specified cardiac dysrhythmias documented in this encounter Care Teams Motion Designer Relationship Specialty Start Date End Date Faith Villafuerte MD PCP - General Family Medicine 11/19/15 documented as of this encounter
--- OUTSIDE RECORDS SUMMARY | 2022-02-04 00:54 | XMS_ITS | Encounter Summary ---
:1950 Author Organization [facility] [place] [address] Care Team Providers Name Role Phone Parviz Villafuerte MD Primary Care Provider Reason for Referral Diagnostic Test (Routine) - Closed Specialty Diagnoses / Procedures Referred By Contact Refer red To Contact Diagnoses Bradycardia Lack of energy Abnormal ECG Be Collier MD [facility] Non-Inv Card Lab Procedures Echocardiogram Stress (Treadmill) [facility] [place] [address] [place] [address] Referral ID Status Reason Start Date Expiration Date Visits V isits Requested Authorized [id number] Closed Specialty 11/25/2015 11/24/2016 1 1 Service Requested Reason for Visit Reason Comments Fatigue Bradycardia Consultation (Routine) - Closed Specialty Diagnoses / Procedures Referred By Contact Refer red To Contact Cardiology Diagnoses bradycardia Parviz Villafuerte MD [facility] [address] [place] [address] [place] [address] Referral ID Status Reason Start Date Expiration Date Visits V isits Requested Authorized [id number] Closed Consult, 11/19/2015 11/18/2016 1 1 [facility] Encounter Details Date Type Department Care Team Description 11/25/2015 Office Visit Cardiology [place] [facility] Be Collier, Bradycardia; [facility] Josiah ramos MD Lack of energy; [place] [address] [facility] Abnormal ECG [phone] CARDIOLOGY DEPT. [place], [place] [address] (Wo rk) Social History Tobacco Use Types Packs/Day Years Used Date Former Smoker Comments: quit 20 years ago Sex Assigned at Date Recorded Not on file documented as of this encounter Last Filed Vital Signs Vital Sign Reading Time Taken Comments Blood Pressure 132/82 11/25/2015 4:02 PM EDT Pulse 68 11/25/2015 4:02 PM EDT regular, radial Temperature - - Respiratory Rate - - Oxygen Saturation 97% 11/25/2015 4:02 PM EDT Inhaled Oxygen Concentration - - Weight 80.3 kg (177 lb) 11/25/2015 4:02 PM EDT Height 167.6 cm (5' 6) 11/25/2015 4:02 PM EDT Body Mass Index 28.57 11/25/2015 4:02 PM EDT documented in this encounter Progress Notes Be Collier MD - 11/25/2015 4:36 PM EDT Images from the original note were not included. [facility] [place] [address] [address] CARDIOLOGY OUTPATIENT CONSULTATION [facility] Office Kyler Brito [id number] 11/25/2015 REFERRING PROVIDER: Parviz Villafuerte CHIEF COMPLAINT: Chief Complaint Patient presents with ??? Fatigue ??? Bradycardia PROBLEM LIST Patient Active Problem List Diagnosis ??? Bradycardia ??? Fatigue HISTORY OF PRESENT ILLNESS: This 65-year-old man was kindly referred for evaluation of bradycardia. He was apparently feeling well and was not otherwise sick in any way he can recall until October 19, 2015 while he was accompanying his for some suture removals on her hand. He was seated, not watching the procedure, and otherwise doing okay. He noted the sudden onset of diaphoresis and lightheadedness. His heart rate was checked and was apparently in the 40s. His blood pressure was normal. He did not seek emergency attention and went home. The next day he apparently had similar symptoms with bradycardia, diaphoresis, and lightheadedness. He sought attention at his local emergency room ([facility]) where he reported the symptoms the day before and ongoing symptoms of lack of energy and shakiness. At that time his blood pressure is 150/78 and pulse 48. His oxygen saturations were normal and his exam was otherwise unremarkable. His heart rate apparently was in the 50s for most of the time but occasionally dipped into the 40s. Thyroid functions were checked and were unremarkable. An EKG showed sinus bradycardia with a rate of 50. He was set up with a Holter monitor which was performed on October 29, 2015. This showed low, average, and maximal heart rates of 45, 61, and88. He had rare PACs and PVCs with one ventricular triplet. He had no symptoms during the period of study. Although he has not had another episode, he says he has not felt well ever since this whole constellation of symptoms began. He seems to lack energy. He is occasionally mildly lightheaded. He seems to have lost his ambition. His has noticed discernible difference. He has not experienced chest discomfort and denies exertional dyspnea. PAST MEDICAL HISTORY: Reviewed and updated as appropriate in the medical record. Please refer to detailed Problem List above for current listing of active medical problems. MEDICATIONS: No current outpatient prescriptions on file. No current facility-administered medications for this visit. ALLERGIES: Review of patient's allergies indicates no known allergies. SOCIAL HISTORY: He is and lives with his on [place], [place]. 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 He has never smoked. He drinks 2- 3 alcoholic beverages per night. He has 1 caffeinated beverage per day. He uses no recreational drugs. FAMILY HISTORY: His mother is alive at 93 and generally healthy. His father with heart issues at 82. He had angina. He has 5 sisters and no brothers. He has 3 daughters. REVIEW OF SYSTEMS: General: He reports fatigue but denies anorexia, insomnia, fever, or weight loss. Eyes: [No visual loss, double vision, drainage, eye pain, or dry eyes.] ENT: [No sore throat or dry mouth.] Pulmonary: [No shortness of breath, cough, or hemoptysis.] Hem/Lymph: [No swollen glands, fever, or bleeding.] GI: [No abdominal pain, change in bowel habits, melena, nausea, vomiting or dysphagia.] : [No urethral discharge, dysuria, frequency, or nocturia.] Endocrine: [No hot spells, cold spells.] Musculoskeletal: [No limb pain, joint pain, or joint swelling.] Neuro: [No focal weakness, ataxia, confusion, paresthesias or headache.] Skin: [No rashes or dry skin.] Psych: [No depression, anxiety, suicidal ideation.] Cardiac: See HPI PHYSICAL EXAMINATION: Vital Signs: BP 132/82 mmHg Pulse 68 Ht 167.6 cm (5' 6) Wt 80.287 kg (177 lb) BMI 28.58 kg/m2 SpO2 97% Exam Details: On exam he appeared in good health and spirits. Vital signs as documented. Skin warm and dry and without overt rashes. Neck without JVD. Lungs clear. Heart exam notable for regular rhythm, normal sounds and absence of murmurs, rubs or gallops. Abdomen unremarkable and without evidence of organomegally, masses, or abdominal aortic enlargement. Extremities non-edematous. DATA: 12-lead EKG: This showed normal sinus rhythm at a rate of 67. He had some biphasic T waves and some mild ST depression in leads V2 through V6. ASSESSMENT: In summary, this is a 65-year-old man who has been experiencing somewhat unexplained bradycardia, lightheadedness, and lack of energy during the last month or so. He has a slightly abnormalEKG. His thyroid functions were normal. A Holter monitor showed bradycardia although not excessivelyso. While all of this is somewhat unexplained, in the context of his abnormal EKG I think it reasonable to formally assess and both for coronary ischemia and also chronotropic incompetence. We reviewedthe situation in detail. We decided upon the plan detailed below. RECOMMENDATIONS: 1. Zio patch to be applied today 2. Schedule stress echocardiogram both to evaluate for chronotropic competence and to explore for underlying cardiac ischemia 3. Cardiac follow-up in about one months to reassess Thank you for requesting this consultation. For questions, please feel free to contact me via any ofthe following mechanisms: Email: [email or web address] First is chest is documented in this encounter Plan of Treatment Not on filedocumented as of this encounter Procedures Procedure Name Priority Date/Time Associated Diagnosis Comme nts EKG 12-LEAD Routine 11/25/2015 4:34 PM Bradycardia Results f or this EDT procedure are i n the results section . documented in this encounter Results STRESS ECHOCARDIOGRAM W CONTRAST LMTD SPEC DOPP,COLOR DOPP (12/23/2015 2:00 PM EDT) P athologist Signature EF 65 HEARTLAB SYSTEM Specimen (Source) Anatomical Location Collection Method / Collectio n Time Received Time / Laterality Volume 12/23/2015 Narrative HEARTLAB SYSTEM - 12/23/2015 2:26 PM EDT Procedure: ?Stress Echocardiogram Patient: ?PROSPER Davey ? (Age): 1950(65y) Med Rec#: ? [id number] ?Sex: ?M ? Site Loc: ? [facility] ?Ht / Wt: ??168(cm)/80(kg) Pt. Loc: ?Echo Lab ?BSA: ?1.9 Study Date: ?? 12/23/2015 ?Pt. Type: Tape: ? Referring: Be Collier Referring: PARVIZ VILLAFUERTE E Reading: Toi Newsome ([id number]) Placement Interviewer: Scott Berg Fur Blower: Ayden Mayer MS, [facility] Diagnosis: *ICD-10-PCS Other fatigue (R53.83) *ICD-10-PCS Abnormal electrocardiogram [ECG] [EKG] (R94.31) *ICD-10-PCS Bradycardia, unspecified (R 00.1) CPT Codes: *Stress Echo (92648) *Color Doppler (77275) *Doppler LTD (74288) *ECG Interpretation (15520) *Definity ([id number]) Stage ? BP ?HR ? Rest ?126/88 [...] E-wave Vmax ?0.6 ?m/sec ? MV deceleration [id number] ?msec ? MV A-wave Vmax ?0.5 ?m/sec [...] ?Normal ?Normal ? Mid-Inferoseptal ?Normal ?Normal ? [place]-Septal ? Normal ?Normal ? [place]-Anterior ? Normal ?Normal ? [place]-Lateral ?Normal ?Normal ? [place]-Inferior ? Normal ?Normal ? [place]-Tip ?Normal ?Normal ? This report has been electronically sign ed by: _ Toi Newsome MD ? 12/23/2015 1 4:26:11 Images reviewed and interpretation verif ied [facility] Cardiac Ultrasound Laboratory Procedure Note Toi Newsome MD - 12/23/2015Format ting of this note might be different from the original. Procedure: Stress Echocardiogram Patient: PROSPER CASTELLANO(Age): [birth year](65y) Med Rec#: [id number] Sex: M Site Loc: [facility] Ht / Wt: 168(cm)/80(kg) Pt. Loc: Echo Lab BSA: 1.9 Study Date: 12/23/2015 Pt. Type: Tape: Referring: Be Collier Referring: PARVIZ VILLAFUERTE E Reading: Toi Newsome ([id number]) Placement Interviewer: Scott Berg Fur Blower: Ayden Mayer MS, [facility] Diagnosis: *ICD-10-PCS Other fatigue (R53.83) *ICD-10-PCS Abnormal electrocardiogram [ECG] [EKG] (R94.31) *ICD-10-PCS Bradycardia, unspecified (R 00.1) CPT Codes: *Stress Echo (85860) *Color Doppler (91744) *Doppler LTD (97274) *ECG Interpretation (12819) *Definity (50692WH) Stage BP HR Rest 126/88 63 Peak [...] pre sent. Tricuspid Valve: The tricuspid valve debby ears normal in structure and function. There [...] MV E-wave Vmax 0.6 m/sec MV deceleration [id number] msec MV A-wave Vmax 0.5 m/sec MV [...] Normal Mid-Inferior Normal Normal Mid-Inferoseptal Normal Normal [place]-Septal Normal Normal [place]-Anterior Normal Normal [place]-Lateral Normal Normal [place]-Inferior Normal Normal [place]-Tip Normal Normal This report has been electronically sign ed by: _ Toi Newsome MD 12/23/2015 14:26:1 1 Images reviewed and interpretation ver ied [facility] Cardiac Ultrasound Laboratory Be Collier MD ECHO ORDERABLES Performing Organization Address City/State/ZIP Code Phon e Number HEARTLAB SYSTEM Ziopatch (11/25/2015 5:12 PM EDT) Specimen (Source) Anatomical Location Collection Method / Collectio n Time Received Time / Laterality Volume Narrative Helene Stewart MD - 12/16/2015 12:3 9 PM EDT ZIOPATCH MONITOR Hookup Date: 11/25/2015 Monitor duration: 14 days (no significan t artifact) Predominant rhythm: Sinus Average heart rate: 65 beats per minute Minimum sinus rate: 39 bpm at 4:21 am Maximum sinus rate: 121 bpm at 7:14 pm Atrial ectopy: Rare (<1%) Rare single APCs, rare APC couplets, 0 A PC triplets 4 run(s) of SVT: The fastest consisting of 5 beats at 155 bpm and the longest consisting of 5 beats at 132 bpm . Ventricular ectopy: Rare (<1%) 729 single VPCs, 0 VPC couplets, 1 VPC t riplets No run(s) of ventricular tachycardia: Bradycardia: There were no significant pauses. Symptoms: There were 10 triggered events: 9 during sinus and 1 during sinus with atrial ectopy. Be Collier MD CARDIAC SERVICES ORDERABLES EKG 12 Lead (11/25/2015 4:34 PM EDT) Component Value Ref Range Test Analysis Performed Pathologis t Method Time At Signature Ventricular rate 67 BPM MUSE SYSTEM Atrial Rate 67 BPM MUSE SYSTEM P-R Interval 150 ms MUSE SYSTEM QRS Duration 88 ms MUSE SYSTEM Q-T Interval 378 ms MUSE SYSTEM QTC Calculated 399 ms MUSE SYSTEM (Bezet) Calculated P Benton 56 degrees MUSE SYSTEM Calculated R [place] 36 degrees MUSE SYSTEM Calculated T [place] 64 degrees MUSE SYSTEM INTERPRETATION Normal sinus rhythm MUSE SYSTEM Nonspecific ST and T wave abnormality Abnormal ECG No previous ECGs available Confirmed by MD ROSANNE, CHARLES ([id number]) on 11/26/2015 9:39:59 AM Specimen Anatomical Collection Method Collection Time Receive d Time (Source) Location / / Volume Laterality 11/25/2015 4:34 PM 6 9:39 EDT AM EDT Be Collier MD ECG ORDERABLES Performing Organization Address City/State/ZIP Code Phon e Number MUSE SYSTEM documented in this encounter Visit Diagnoses Diagnosis Bradycardia Other specified cardiac dysrhythmias Lack of energy Other malaise and fatigue Abnormal ECG Nonspecific abnormal electrocardiogram ( ECG) (EKG) Bradycardia Other specified cardiac dysrhythmias Lack of energy Other malaise and fatigue Bradycardia Other specified cardiac dysrhythmias Lack of energy Other malaise and fatigue Abnormal ECG Nonspecific abnormal electrocardiogram ( ECG) (EKG) documented in this encounter Care Teams Buffing Machine Tender Relationship Specialty Start Date End Date Parviz Villafuerte MD PCP - General Family Medicine 11/19/15 documented as of this encounter
--- OUTSIDE RECORDS SUMMARY | 2022-02-04 00:54 | XMS_ITS | Clinical Summary ---
:1950 Author Organization [facility] [place] [address] Care Team Providers Name Role Phone Parviz Gamble MD Primary Care Provider Allergies No known active allergies Medications Medication Sig Dispensed Refills Start Date End Date Status ibuprofen Take 200 mg by 0 Activ e (ADVIL;MOTRIN) 200 mg mouth every 6 Tablet hours as needed for Pain. Active Problems Problem Noted Date Bradycardia 11/25/2015 Fatigue 11/25/2015 Social History Tobacco Use Types Packs/Day Years Used Date Former Smoker Comments: quit 20 years ago Sex Assigned at Date Recorded Not on file Last Filed Vital Signs Vital Sign Reading Time Taken Comments Blood Pressure 110/70 12/23/2015 3:14 PM EDT Pulse 67 12/23/2015 3:14 PM EDT Temperature - - Respiratory Rate - - Oxygen Saturation 97% 12/23/2015 3:14 PM EDT Inhaled Oxygen Concentration - - Weight 81.2 kg (179 lb) 12/23/2015 3:14 PM EDT Height 167.6 cm (5' 6) 11/25/2015 4:02 PM EDT Body Mass Index 28.89 11/25/2015 4:02 PM EDT Plan of Treatment Health Maintenance Due Date Last Done Comments Covid-19 Vaccine (#1) 1956 Hepatitis C Screening 1969 Lipid Screening 1969 Tdap adult 1970 Tetanus vaccine 1970 Colonoscopy 1996 Zoster vaccine (1 of 2) 2001 Advance Directive 2006 Pneumoccocal Vaccine: 65+ (1 - PCV) 2016 Influenza (Flu) vaccine (1 of 1 - Influenza standard 03/18/2022 series) Care Teams Button Tufting Machine Operator Relationship Specialty Start Date End Date Parviz Gamble MD PCP - General Family Medicine 11/19/15
--- OUTSIDE RECORDS SUMMARY | 2022-02-04 00:54 | XMS_ITS | Encounter Summary ---
:1950 [place] [address] Care Team Providers Name Role Phone Parviz Gamble MD Primary Care Provider Encounter Details Date Type Department Care Team Description 11/25/2015 Hospital Encounter Non-Invasive Be Collier Bra dycardia; Cardiology Lab Kate JERRY Lack of energy [facility] [place] [address] [place] [address] [phone] Social History Tobacco Use Types Packs/Day Years Used Date Former Smoker Comments: quit 20 years ago Sex Assigned at Date Recorded Not on file documented as of this encounter Plan of Treatment Not on filedocumented as of this encounter Procedures Procedure Name Priority Date/Time Associated Diagnosis Comme nts ZIOPATCH Routine 11/25/2015 5:12 PM Bradycardia Results for this EDT Lack of energy procedure are in the results section . documented in this encounter Results Ziopatch (11/25/2015 5:12 PM EDT) Specimen (Source) [...] ectopy. Be Collier MD CARDIAC SERVICES ORDERABLES documented in this encounter Visit Diagnoses Diagnosis Bradycardia Other specified cardiac dysrhythmias Lack of energy Other malaise and fatigue documented in this encounter Care Teams Job Press Operator Relationship Specialty Start Date End Date Parviz Gamble MD PCP - General Family Medicine 11/19/15 documented as of this encounter
== END ==
PROVIDERS: PCP Family Medicine; Visit Provider Family Medicine
DX: Z13.6 Encounter for screening for cardiovascular disorders (principal); Z87.891 Personal history of nicotine dependence
CPT/HCPCS: 76706

== ENCOUNTER → 2022-06-16 07:45 | Outpatient (BNVA) | payer MEDICARE, SELFPAY | PROVIDERS: PCP Family Medicine; Referring Provider Family Medicine; Visit Provider Surgery | DX: Z12.11 Encounter for screening for malignant neoplasm of colon (principal) ==

== ENCOUNTER 2022-07-01 05:53 | Day surgery (SDC) | payer MEDICARE, SELFPAY ==
--- NOTE | 2022-06-30 20:16 | W.PM.DSUDISC ---
Date of service: 07/01/22 Time of Service: 07:48 Discharge Plan Disposition Patient Disposition: Home Condition: Good Discharge Details Reason For Visit: Screening colonoscopy Attending Provider: Christiano Aguero Primary Care Provider: Rebecca Beltrán Home Meds and New Rx's Prescriptions: Continued oxybutynin chloride 5 mg tablet 5 mg PO TID PRN (Reason: urgency) Qty: 60 11RF ibuprofen 200 mg capsule 400 mg PO .AM ammonium lactate 12 % cream 1 applic TP DAILY diltiazem HCl 60 mg tablet 60 mg PO TID sildenafil 100 mg tablet 100 mg PO DAILY PRN pantoprazole 40 MG tablet,delayed release (DR/EC) 40 mg PO DAILY atorvastatin [Lipitor] 20 mg tablet 40 mg PO HS Discontinued polyethylene glycol 3350 17 gram/dose powder 238 g PO ONCE Qty: 238 0RF Rx Instructions: take per colonoscopy instructions bisacodyl [Dulcolax (bisacodyl)] 5 mg tablet,delayed release (DR/EC) 5 mg PO ONCE Qty: 4 0RF Rx Instructions: take per colonoscopy instructions Discharge Instructions Instructions: Diverticulosis (DC), Diverticulosis Diet (GEN) Additional Instructions: 1. If tolerated, consume a soft, low fiber diet for 1-2 days. 2[address] Do not drive, drink alcohol, operate machinery, make critical decisions, or do activities that require coordination or balance for 24 hours. 3. Because air was put into your colon during the procedure, expelling air from your rectum (passing gas or farting) is normal. 4. You may not have a bowel movement for 1-3 days because of the colonoscopy prep. This is normal. 5. Go directly to the emergency room if you notice any of the following: Develop chills (warm to touch), or if you have a thermometer and your temperature is above 101 Difficulty breathing or difficultly swallowing Persistent vomiting Severe abdominal pain, other than gas cramps Severe chest pain Black, tarry stools Any bleeding ? exceeding one tablespoon 6. Call your physician if the site where your intravenous was started becomes red, swollen, painful, and warm to touch. 7. Your physician has reviewed your pre-procedure medications. Please continue to take those medications as previously ordered. You will be given specific information/education regarding any changes to your medications before leaving. Activity:: Activity as Tolerated Diet:: As Tolerated Discharge Orders Discharge Orders: Discharge Order (Routine); Ordered 12/14/22 Ordered By: Christiano Aguero DS: Diagnosis Discharge Diagnosis (1) Diverticulosis: Status: Acute Asessment and Plan: Consume a well-balanced high-fiber diet and stay well-hydrated Follow-up for your next colonoscopy in 10 years
--- NOTE | 2022-06-30 20:17 | W.COLOREPORT ---
Date of service: 07/01/22 Time of Service: 07:50 Colonoscopy Report Date of procedure: 07/01/22 Pre-op diagnosis general: Routine health maintenance screening colonoscopy Post-op diagnosis procedure note: other (Diverticulosis) Procedure: Screening colonoscopy Surgeon: Christiano Aguero Anesthesia Type: General:No Airway Estimated blood loss (mL): 0 Pathology: none sent Complications: None Disposition: same day Indications: Juan Luis is a 72-year-old male here for his next screening colonoscopy Prep: Miralax/Dulcolax Procedure Start Time: 07:28 Procedure End Time: 07:39 Retraction Time: 8 Findings: Mild sigmoid diverticulosis Procedure Description: After the induction of monitored anesthetic care, and with the patient in left lateral decubitus position, I began by performing an external anorectal exam.? Perineum and skin were normal, as was the anal verge.? There was no evidence of external hemorrhoids.? Next, I performed a digital rectal exam.? I did not appreciate any abnormal findings.? Next, I advanced a colonoscope into the rectal vault.? I performed retroflexion.? This was normal.? Using insufflation, I then advanced the colonoscope beyond the rectal folds and into the sigmoid colon before advancing towards the cecum.? The quality of the prep was excellent.? There was mild sigmoid diverticulosis. the scope was noted to be in the cecum by identification of the ileocecal valve and appendiceal orifice.? I then began withdrawing the colonoscope using repeated irrigation as necessary for full evaluation of the colonic mucosa. ?Once the scope was withdrawn to the level of the rectum, great care was taken to examine portions of the rectal folds.? Finally, the scope was withdrawn and the patient was brought to the same-day surgery recovery unit as the anesthetic wore off. ?The findings and instructions were shared with the patient prior to discharge. Juan Luis can follow-up for his next colonoscopy in 10 years
[2022-07-01 06:30] VITALS: BP 118/79; PULSE 69; RESP 15; TEMP 36.5; O2SAT 95
[2022-07-01] MEDS: Lactated Ringers 1,000 ML 80 ML IV (06:40)
--- NOTE | 2022-07-01 06:57 | ANES.PREOP_ITS ---
General Info Date of Service Date Performed: 07/01/22 Height: 5 ft 6 in Weight: 78.9 kg Body Mass Index (BMI): 28.0 Surgical Procedure: Operation Date: 07/01/22 07:35 Proposed Procedure Side Surgeon kelsey Aguero MD Meds Allergies and Home Medications Allergies Allergy/AdvReac Type Severity Reaction Status Date / Time No Known Drug Allergies Allergy Unverified 07/01/22 06:28 Home Medication Medication Instructions Recorded pantoprazole 40 mg tablet,delayed 40 mg PO DAILY 09/22/16 release ammonium lactate 12 % topical cream 1 applic topical DAILY 10/02/18 atorvastatin 20 mg tablet (Lipitor) 40 mg PO HS 10/02/18 diltiazem HCl 60 mg tablet 60 mg PO TID 10/02/18 oxybutynin chloride 5 mg tablet 5 mg PO TID PRN urgency #60 tabs 11/29/18 sildenafil 100 mg tablet 100 mg PO DAILY PRN 09/12/19 ibuprofen 200 mg capsule 400 mg PO .AM 06/16/22 Current Visit Medications: Current Medications Generic Name Dose Route Start Last Admin Trade Name Fredyq PRN Reason Stop Dose Admin Hyoscyamine Sulfate 0.125 mg 06/30/22 20:18 Hyoscyamine 0.125 Mg Sl/Oral/Chew SL DIRECTED PRN Ringer's Solution 1,000 mls @ 80 mls/hr 07/01/22 06:00 07/01/22 06:40 IV 07/30/22 23:59 80 mls/hr INFUSION JENA Administration IV Miscellaneous Supplies 1 each 07/01/22 06:00 Iv Access IV 07/30/22 23:59 DIRECTED JENA Ondansetron HCl 4 mg 06/30/22 20:18 Ondansetron 4 Mg/2 Ml Vial IVP Q4H PRN PRN Nausea / Vomiting Sodium Chloride 0 ml 07/01/22 06:00 Normal Saline Flush 10 Ml Syr IV 07/30/22 23:59 PRN PRN Sodium Chloride 0 ml 07/01/22 06:00 Normal Saline 10 Ml Vial IJ 07/30/22 23:59 DIRECTED PRN Sterile Water 0 ml 07/01/22 06:00 Water,Injection,Sterile 10 Ml Vial IJ 07/30/22 23:59 DIRECTED PRN PFSH Active Problems Active Problems: Problem Status Onset Code Urgency incontinence 06/15/16 N39.41 Incomplete tear of left rotator cuff 07/21/16 M75.112 Frequency of urination 06/15/16 R35.0 Dysphonia 07/26/16 R49.0 Erectile dysfunction N52.9 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 Screening for colon cancer Z12.11 Medical History Medical History Bradycardia Chronic hoarseness Diverticulosis Dysphagia Elevated TSH GERD (gastroesophageal reflux disease) Heavy alcohol consumption Hyperactivity of bladder Hyperlipidemia Ichthyosis vulgaris Obstructive sleep apnea Prediabetes Surgical History Surgical History History of colonoscopy History of shoulder surgery Hx of knee surgery Tobacco Smoking/Tobacco Use Status: Former Tobacco Use Alcohol Alcohol Intake: current Alcohol intake frequency: 3 or more drinks per day Alcohol type: beer Substance Use Substance use: Never Substance use type: does not use Vital Signs and Lab Results Vital Signs Most Recent Vital Signs in EMR: Most Recent Vital Signs Temp Pulse Resp BP Pulse Ox 36.5 C 69 15 118/79 95 07/01/22 06:30 07/01/22 06:30 07/01/22 06:30 07/01/22 06:30 07/01/22 06:30 Lab Results Blood Type / Crossmatch: No Data to Display Complete Blood Count: No Data to Display Complete Metabolic Panel: No Data to Display Liver Function Panel: No Data to Display Coagulation Panel: No Data to Display Cardiac Panel: No Data to Display Arterial Blood Gas: No Data to Display Venous Blood Gas: No Data to Display Pancreas Panel: No Data to Display Thyroid Panel: No Data to Display Infectious Disease: No Data to Display Blood Cultures: No Data to Display Toxicology Panel: No Data to Display Anesthesia Assessment and Plan Anesthesia History Personal History: No History of Anesthesia Complications Family History: No Family History of Anesthesia Complications Exercise Tolerance Exercise Tolerance: Metabolic Equivalents>4 Pertinent Negatives Pertinent Negatives: No Symptoms of GERD (Well controlled GERD with medication ), No Major Cardiovascular Symptoms or Complaints (Negative stress test 2009, ), No Major Pulmonary Symptoms or Complaints (Smoker quit smoking 2021) and No History of CVA/TIA Cardiac & Pulmonary Exam Cardiac Exam: Normal S1/S2 Heart Sounds Pulmonary Exam: Clear Bilateral Breath Sounds Implantable Cardiac Device Does patient have a Pacemaker or an ICD?: No Airway Exam Known Difficult Airway: No Mallampati Class: 4 Mouth Opening: Narrow (< 3cm) Thyromental Distance: Greater than 3 cm Neck Range of Motion: Full ROM Neck Circumference: Normal Teeth Condition: Removable Dentures/Plates Upper Airway Comments: Multiple loose teeth especially 41 & 31 ASA Classification ASA Score: ASA 2 Emergency Case?: No NPO Status NPO Status: NPO Clears >2 hours, Solids >8 hours Anesthesia Plan Resuscitation Status: Full Code Anesthesia Technique: General Anesthesia Airway Planned: Natural Airway Monitors Used: Standard Monitors Preoperative Comments:: Negative stress ECHO [place]23/[place] [facility] [place]
[2022-07-01 07:06] VITALS: BMI 28.0
[2022-07-01 07:49] VITALS: BP 108/82; PULSE 55; RESP 16; TEMP 36.2; O2SAT 98
--- NOTE | 2022-07-01 07:52 | W.ANESPOSTOP ---
Postoperative Evaluation Date, Time and Location Date Performed: 07/01/22 Time Performed: 07:52 Patient Location: Day Surgery Unit Vital Signs Most Recent Imported Vital Signs: Most Recent Vital Signs Temp Pulse Resp BP Pulse Ox 36.2 C L 55 L 16 108/82 98 07/01/22 07:49 07/01/22 07:49 07/01/22 07:49 07/01/22 07:49 07/01/22 07:49 Pain Score Most Recent Pain Score: Most Recent Pain Score Pain Level 0 07/01/22 07:49 Assessment Mental Status: Awake (Alert & Oriented to Patient Baseline) Airway and Respiratory Function: Patent airway with normal (patient baseline) respiratory exam Cardiovascular Function: Hemodynamically Stable Hydration Status: Adequately Hydrated Nausea & Vomiting: No Nausea or Vomiting Pain: Pt. Denies Any Pain Peripheral Nerve Block: Patient did not receive a nerve block
[2022-07-01 08:13] VITALS: BP 126/87; PULSE 53; RESP 16; TEMP 36.5; O2SAT 98
== END 2022-07-01 08:26 | disposition home or self-care (01) ==
PROVIDERS: PCP Family Medicine; Visit Provider Surgery
PROC: 0DJD8ZZ Inspection of Lower Intestinal Tract, Via Natural or Artificial Opening Endoscopic (ICD-10-PCS; CPT 45378; principal; 2022-07-01 07:30)
DX: Z12.11 Encounter for screening for malignant neoplasm of colon (principal); K57.30 Diverticulosis of large intestine without perforation or abscess without bleeding; K21.9 Gastro-esophageal reflux disease without esophagitis
CPT/HCPCS: G0121

== ENCOUNTER 2023-01-31 11:02 | Outpatient (REF) | payer MEDICARE, SELFPAY ==
[2023-01-31 15:11] LABS: HCT 41.9 % (40.0-50.0); HGB 14.8 g/dL (13.5-17.5); MCH 33.5 pg (27.0-33.0); MCHC 35.3 % (32.0-36.0); MCV 95 fL (80-95); MPV 11.4 fL (8.0-11.0); Platelet Count 235 10^3/uL (130-400); RBC 4.42 10^6/uL (4.36-5.78); RDW 11.6 % (11.8-14.1); RDW-SD 40.3 fL; WBC 10.31 10^3/uL (4.4-10.8)
[2023-01-31 15:46] LABS: ALT 19 U/L (16-63); AST 16 U/L (15-37); Alkaline Phosphatase 99 U/L (46-116); Anion Gap 10.6 mmol/L (3-11); BUN 24 mg/dL (7-18); Bilirubin, Total 2.4 mg/dL (0.2-1.0); CO2 24.4 mmol/L (21.0-32.0); CREATININE 1.3 mg/dL (0.70-1.30); Calcium 8.9 mg/dL (8.5-10.1); Chloride 106 mmol/L (98-107); Estimated GFR 58.73 (mL/min/1.73m2); Glucose 101 mg/dL (74-106); Potassium 4.5 mmol/L (3.5-5.1); Sodium 141 mmol/L (136-145); TSH (W/Ref FT4) 4.08 uIU/mL (0.36-3.74); Total Protein 6.9 g/dL (6.4-8.2)
[2023-01-31 15:58] LABS: Hemoglobin A1C 5.6 % (<5.7)
[2023-01-31 16:35] LABS: FREE T4 0.92 ng/dL (0.76-1.46)
[2023-02-01 10:15] LABS: Hepatitis C Ab w Rflx HCV PCR Negative (Negative)
== END 2023-01-31 11:03 | disposition home or self-care (01) ==
LOC: NCHCN 11:02
PROVIDERS: PCP Family Medicine; Visit Provider Family Medicine
DX: Z00.00 Encounter for general adult medical examination without abnormal findings (principal); Z11.59 Encounter for screening for other viral diseases; R73.03 Prediabetes; R94.6 Abnormal results of thyroid function studies; E78.5 Hyperlipidemia, unspecified; Z72.89 Other problems related to lifestyle
CPT/HCPCS: 80053; 85027; 86803; 83036; 84439; 84443

== ENCOUNTER 2024-01-31 15:17 | Outpatient (REF) | payer MEDICARE, SELFPAY ==
[2024-01-31 16:52] LABS: Calculated LDL 160 mg/dL (<100); Cholesterol 215 mg/dL (<200); HDL Cholesterol 41 mg/dL (40-60); TSH (W/Ref FT4) 4.79 uIU/mL (0.36-3.74); Triglyceride 71 mg/dL (<150)
[2024-01-31 17:15] LABS: Hemoglobin A1C 5.9 % (<5.7)
== END 2024-01-31 15:18 | disposition home or self-care (01) ==
LOC: NCHCN 15:17
PROVIDERS: PCP Family Medicine; Visit Provider Nurse Practitioner Family
DX: E78.5 Hyperlipidemia, unspecified (principal); R73.03 Prediabetes; E03.9 Hypothyroidism, unspecified
CPT/HCPCS: 80061; 83036; 84439; 84443

== ENCOUNTER 2024-08-17 18:48 | Inpatient (IN) | payer MEDICARE, SELFPAY ==
[2024-08-17] VITALS (48 sets, daily range): BP systolic 107–167; BP diastolic 37–80; PULSE 51–90; RESP 11–20; TEMP 36.8; O2SAT 92–98
--- NOTE | 2024-08-17 18:45 | DI.RAD_ITS ---
Exam(s) XR CHEST 1V IN DI DEPT EXAM: XR CHEST 1V IN DI DEPT CLINICAL HISTORY: Headache. TECHNIQUE: 2D digital imaging was performed. COMPARISON: No exams were available for comparison FINDINGS: Single AP portable view. Heart size is upper normal. The mediastinum is not widened. Left lung is clear. There are mild increased markings in the lower right lung field. No pleural effus ions. No pulmonary edema. IMPRESSION: Increased markings in the lower right lung field. Probably small area of infiltrate. There are no ple ural effusions. DATA REPOSITORY: RADIATION DOSE DELIVERED:
--- NOTE | 2024-08-17 18:45 | RT.EKG_ITS ---
APPROVED REPORT Exam: Resting ECG Reason for Exam: Weakness Patient Location: E HR:69 bpm ECG Measurements Heart Rate 69 AXIS GA 165 P 53 QRSd 99 QRS 20 QT 356 T 57 QTc 382 Conclusion Sinus rhythm...normal P axis, V-rate 60- 99 Atrial premature complex...SV complex w/ short R-R interval No STEMI
--- NOTE | 2024-08-17 18:52 | ED.GENADUL_ITS ---
Discharge Plan Disposition Patient Disposition: Admit to [facility] Discharge Details Clinical Impression: Influenza A, Community acquired pneumonia Primary Care Provider: Rebecca Beltrán ED Provider: Julio Avila Home Meds and New Rx's Prescriptions: No Action oxybutynin chloride 5 mg tablet 5 mg PO TID PRN (Reason: urgency) Qty: 60 11RF ibuprofen 200 mg capsule 400 mg PO .AM ammonium lactate 12 % cream 1 applic TP DAILY diltiazem HCl 60 mg tablet 60 mg PO TID sildenafil 100 mg tablet 100 mg PO DAILY PRN pantoprazole 40 MG tablet,delayed release (DR/EC) 40 mg PO DAILY atorvastatin [Lipitor] 20 mg tablet 40 mg PO HS atorvastatin 40 mg tablet 40 mg PO QPM Patient Comments: TAKE ONE TABLET BY MOUTH EVERY DAY HPI General Date/Time Provider Initiated Documentation: 08/17/24 18:51 . HPI Narrative: MDM This is an unwell appearing normothermic and nontachycardic 74-year-old male with generalized weakness. He reportedly had sudden onset headache with aphasia. He underwent CT scan which was negative for any subarachnoid hemorrhage. Given reported aphasia and confusion will complete teleneuro consult. He denies abdominal pain and has a soft nontender abdomen so I am not concerned for intra-abdominal infection. He has felt unwell and has a right lower lung infiltrate on chest x-ray and an infiltrate in his right upper lobe on his CT scan for which radiology advised CT chest. No pain out of proportion to suggest necrotizing soft tissue infection. He is a alcoholic so we will obtain CIWA. Will treat with 2 g of ceftriaxone and add doxycycline. Will swab for COVID influenza and RSV. I considered sepsis however the patient is not hypotensive nor tachycardic however given the patient will be hospitalized we will draw blood cultures prior to antibiotics. He is port score is elevated at 93 given his age male sex and altered mental status making him appropriate for hospitalization. 11 PM Late charting due to patient care. Patient swab positive for influenza A. His CIWA score was 0. He last drank several days ago. I spoke with Dr. Christine who agreed to accept the patient for hospitalization. His CT scanning of his chest showed a significant patchy infiltrate of his right upper lobe. He remained stable on room air. He received antibiotic treatment with ceftriaxone and doxycycline. Chronic conditions affecting the care of the patient: N/A History obtained from an outside historian: [employer] External record review: N/A Diagnostic interpretations performed by me: Per my independent interpretation chest x-ray shows: Right-sided infiltrate Per my independent interpretation EKG shows: Narrow complex normal sinus rhythm at a rate of 69. Normal axis. Intervals within normal limits. T wave inversions V2 through V5. ]Medications: ceftriaxone & doxy Social determinants of health affecting disposition: N/A Management discussed with: Dr. Vega Treatment/interventions considered: N/A Response to therapies provided: N/A HPI This is a 74-year-old daily drinker right emergency department via EMS following a period of confusion. Patient has reportedly been confused intermittently since this morning. He reportedly developed a serious severe headache and had difficulty speaking. Fingerstick blood glucose was within normal limits. His symptom onset was 4:30 PM. He is a daily drinker but denies history of withdrawal. He is taken decreased p.o. for the past several days. His has been trying to get him to drink liquids and eat some toast. He has had no fevers. No falls. At baseline he has a right-sided lazy eye. Exam General: Well-appearing in no acute distress speaking in complete sentences. Head: Normocephalic, atraumatic. Eye:[Pupils equal, round reactive to light.] Extraocular eye movements intact. No conjunctival injection. No scleral icterus. Ear, nose, mouth, throat: Grossly normal inspection. Normal voice, handling secretions normally. Neck: Trachea midline. Cardiovascular: Well-perfused distal extremities. Respiratory: Nonlabored respiration. Gastrointestinal: Nondistended abdomen. Musculoskeletal: No edema. Moving all 4 extremities spontaneously. Skin: Normal for age and race, grossly normal temperature and turgor. No acute rash. Neurologic: Alert and appropriate, no apparent acute deficits. Right-sided eyelid droop. Otherwise cranial nerves II through XII intact grossly. 5 out of 5 bilateral upper and lower extremity strength. Psychiatric: Mood and manner are appropriate. Grooming and personal hygiene are appropriate. Related Data Home Medications ?Medication ?Instructions ?Recorded ?Confirmed pantoprazole 40 mg tablet,delayed 40 mg PO DAILY 09/22/16 08/17/24 release ammonium lactate 12 % topical cream 1 applic topical DAILY 10/02/18 08/17/24 atorvastatin 20 mg tablet (Lipitor) 40 mg PO HS 10/02/18 08/17/24 diltiazem HCl 60 mg tablet 60 mg PO TID 10/02/18 08/17/24 oxybutynin chloride 5 mg tablet 5 mg PO TID PRN urgency #60 tabs 11/29/18 08/17/24 sildenafil 100 mg tablet 100 mg PO DAILY PRN 09/12/19 08/17/24 ibuprofen 200 mg capsule 400 mg PO .AM 06/16/22 08/17/24 atorvastatin 40 mg tablet 40 mg PO QPM 08/17/24 08/17/24 Previous Rx's ?Medication ?Instructions ?Recorded oxybutynin chloride 5 mg tablet 5 mg PO TID PRN urgency #60 tabs 11/29/18 Allergies Allergy/AdvReac Type Severity Reaction Status Date / Time No Known Drug Allergies Allergy Unknown Verified 08/17/24 18:52 Medical Decision Making Quality:SDOH Health Related Social Needs: No Data to Display PFSH All Active Problems (Updated 08/17/24 @ 20:28 by Julio Avila MD) Community acquired pneumonia (Acute) Influenza A (Acute) Diverticulosis (Acute) Urgency incontinence (Acute 06/15/16) Incomplete tear of left rotator cuff (Acute 07/21/16) Frequency of urination (Acute 06/15/16) Dysphonia (Acute 07/26/16) Erectile dysfunction (Acute) Sensorineural hearing loss of both ears (Acute) Screening for colon cancer (Acute) Medical History Elevated TSH Diverticulosis Ichthyosis vulgaris Bradycardia Chronic hoarseness Hyperactivity of bladder Hyperlipidemia Dysphagia GERD (gastroesophageal reflux disease) Obstructive sleep apnea Prediabetes Heavy alcohol consumption Surgical History Hx of knee surgery History of colonoscopy History of shoulder surgery Social History Smoking/Tobacco Use Status: Former Tobacco Use Smoking risk assessment performed?: Yes Alcohol Intake: current Alcohol Intake frequency: 3 or more drinks per day Alcohol type: beer Drug use: Never Substance use type: does not use Housing: apartment Current gender identity: male Do you feel safe at home: Yes Do you feel safe in your relationship?: Yes
[2024-08-17 19:00] LABS: Abs Immature Grans 0.08 10^3/uL (0.0-0.06); Absolute Basophil Count 0.03 10^3/uL (0.0-0.2); Absolute Lymphocyte Count 0.77 10^3/uL (1.2-3.4); Absolute Monocyte Count 1.56 10^3/uL (0.1-0.8); Absolute Neutrophil Count 13.03 10^3/uL (1.2-6.7); Basophils % 0.2 %; HGB 16.9 g/dL (13.5-17.5); Immature Grans % 0.5 %; MCH 33.1 pg (27.0-33.0); MCHC 34.5 % (32.0-36.0); MCV 96 fL (80-95); MPV 10.5 fL (8.0-11.0); Monocytes % 10.1 %; Neutrophils % 84.2 %; Platelet Count 160 10^3/uL (130-400); RDW 11.7 % (11.8-14.1); RDW-SD 41.7 fL; WBC 15.48 10^3/uL (4.4-10.8)
[2024-08-17 19:06] LABS: Diff Comment Agrees w/ Instrument; Lab Add On Test DONE; RBC Morphology Normal
--- NOTE | 2024-08-17 19:07 | DI.CT_ITS ---
Exam(s) CT BRAIN NECK CTA EXAM: CT BRAIN NECK CTA CLINICAL HISTORY: Difficulty speaking. TECHNIQUE: Imaging Protocol: Axial CT angiography was performed with multi-slice acquisition and mu lti-planar and/or 3D reconstructions. CONTRAST MATERIAL: Intravenous: Omnipaque 350 Contrast volume:70 mL COMPARISON: CR XR CHEST 1V IN DI DEPT from 08/17/2024 FINDINGS: CTA Neck W: Aortic arch anatomy: The aortic arch anatomy is conventional and there is no significant stenosis at the origin of the great vessels off of the aortic arch. No intimal flap evident. Anterior circulation: Both common carotid arteries ascend with normal luminal diameters. At the level the left carotid bulb and proximal left internal carotid artery there is minimal plaque without hemodynamically significant stenosis evident. There is mild calcified plaque on the posterol ateral wall of the right carotid bulb-proximal right internal carotid artery, also without significan t stenosis. Stenosis is estimated approximately 10 percent at this level. Both internal carotid art eries are nicely patent in the upper neck and skull base-carotid canals. Posterior circulation: Both vertebral arteries originate in conventional fashion off of the subclavian arteries and there is no obvious stenosis at the origin of the vertebral arteries. The left vertebral artery is dominant, ascending with luminal diameter of 3.5 mm. The smaller diameter right vertebral artery ascends with a luminal diameter of 3 mm. Both vertebral arteries contribute to the formation of the basilar artery at the skull base. No evid ence of intraluminal thrombus and no evidence of vertebral artery dissection. CTA Brain W: Anterior circulation: Both internal carotid arteries are patent in the skull base-carotid canals as well as within the cave rnous sinuses. The supraclinoid aspects of the ICAs are patent. Both A1 segments are patent as are the anterior cer ebral arteries and there is no evidence of aneurysm at the level of the anterior communicating artery . Both middle cerebral arteries are patent with no evidence of significant stenosis nor intraluminal th rombus. There also no aneurysms of these vessels. Posterior circulation: Basilar artery ascends without significant stenosis. Distally it gives off superior cerebellar arter ies. Above this level the basilar artery terminates as patent bilateral posterior cerebral arteries. There is no evidence of aneurysm at the tip of the basilar artery nor elsewhere in the [id number] is. CT BRAIN: There is no evidence of intracranial hemorrhage, mass effect, or shift of midline structures. There are no extra-axial fluid collections. Ventricles are not enlarged or shifted. There are no ring enh ancing lesions in the brain and no abnormal meningeal enhancement. No evidence of vascular malformat ion in the brain. IMPRESSION: 1. Patent carotid arteries in the neck. No hemodynamically significant stenosis. 2. Patent vertebral arteries. Left vertebral artery is dominant. No evidence of significant vertebr al artery stenosis nor dissection 3. Patent intracranial arteries. Also no evidence of aneurysms nor vascular malformations. 4. No CT evidence of acute territorial infarct nor intracranial hemorrhage. 5. Lowermost images of this study reveal some patchy lung infiltrate in the partially included right upper lobe. Report called by myself to ER physician 08/17/2024 at 7:20 p.m. RADIATION DOSE DELIVERED: 2,079.82mGy.cm Total DLP DATA REPOSITORY: All CT scans at this facility are submitted to the National Radiology Data Registry (NRDR) Dose Index Registry (DIR) with the [employer] ([employer]). RADIATION OPTIMIZATION: All CT scans at this facility use at least one of these dose optimization te chniques: automated exposure control; mA and/or kV adjustment per patient size (includes targeted exa ms where dose is matched to clinical indication); or iterative reconstruction.
[2024-08-17] MEDS: Omnipaque 350 MG/ML 100 ML BTL 70 ML IJ (19:09)
[2024-08-17] MEDS: Normal Saline - Diluent 50 ML VIAL IJ (19:09)
[2024-08-17 19:16] LABS: ALT 20 U/L (16-63); AST 14 U/L (15-37); Albumin 3.7 g/dL (3.4-5.0); Alkaline Phosphatase 94 U/L (46-116); Anion Gap 10.6 mmol/L (3-11); BUN 35 mg/dL (7-18); Bilirubin, Total 1.66 mg/dL (0.2-1.0); CO2 26.4 mmol/L (21.0-32.0); CREATININE 1.5 mg/dL (0.70-1.30); Calcium 8.9 mg/dL (8.5-10.1); Chloride 101 mmol/L (98-107); Creatine Kinase 115 U/L (39-308); Estimated GFR 48.85 (mL/min/1.73m2); Glucose 151 mg/dL (74-106); Potassium 4.1 mmol/L (3.5-5.1); Sodium 138 mmol/L (136-145); Total Protein 7.7 g/dL (6.4-8.2); Troponin I 15 ng/L (<or=76)
[2024-08-17 19:21] LABS: ETHANOL BLOOD < 3.0 mg/dL (<10)
--- NOTE | 2024-08-17 19:36 | DI.CT_ITS ---
Exam(s) CT CHEST WO EXAM: CT CHEST WO CLINICAL HISTORY: Abnormal chest x-ray concerning for multifocal pne. TECHNIQUE: Multi planar reconstructions were performed. CONTRAST MATERIAL: None COMPARISON: CR XR CHEST 1V IN DI DEPT from 08/17/2024 FINDINGS: CHEST: LUNGS: There is significant patchy infiltrate in the right upper lobe. There are mild dependent incr eased markings in the right lung base right lower lobe posterior basal segment. Left lung is clear. There are no pleural effusions on either side. No significant findings in the trachea and mainstem bronchi. There is no bronchiectasis. MEDIASTINUM: There is no obvious hilar nor mediastinal adenopathy. Visualized thyroid unremarkable.No supraclavicular nor axillary adenopathy. CARDIAC: Heart size is upper normal. There is no pericardial effusion.The diameter of the ascending thoracic aorta is enlarged, measuring 4 cm. The diameter of the mid aortic arch is 2.8 cm. Diameter of the proximal descending thoracic aorta is upper normal and diameter of the descending thoracic ao rta is within normal limits. VISUALIZED UPPER ABDOMEN:No adrenal masses. No splenomegaly. OSSEOUS: No significant osseous lesions.No fractures.. IMPRESSION: 1. There is significant patchy infiltrate evident in the right upper lobe. There are milder increase d markings in the dependent aspect of the right lower lobe. Left lung is clear. 2. No pleural effusions and no intrathoracic adenopathy. Report called by myself to ER physician 08/17/2024 at 8:01 p.m. RADIATION DOSE DELIVERED: 222.43mGy.cm Total DLP DATA REPOSITORY: All CT scans at this facility are submitted to the National Radiology Data Registry (NRDR) Dose Index Registry (DIR) with the [employer] (ACR). RADIATION OPTIMIZATION: All CT scans at this facility use at least one of these dose optimization te chniques: automated exposure control; mA and/or kV adjustment per patient size (includes targeted exa ms where dose is matched to clinical indication); or iterative reconstruction.
[2024-08-17 19:54] LABS: COVID-19 PCR Negative (Negative); Influenza B PCR Negative (Negative); RSV PCR Negative (Negative)
[2024-08-17 19:55] LABS: Source NASOPHARYNX
[2024-08-17 20:13] LABS: Bilirubin Negative (Negative); Blood Trace-intact (Negative); Clarity Clear (Clear); Glucose Negative (Negative); Ketones Negative (Negative); Leukocyte Esterase Negative (Negative); Nitrite Negative (Negative); Specific Gravity 1.025 (1.005-1.025); Urobilinogen 0.2 mg/dL (Up to 0.2)
[2024-08-17 20:16] LABS: Troponin I 14 ng/L (<or=76)
[2024-08-17 20:20] LABS: Bacteria Rare HPF (Negative); C & S Indicated? No; Casts Negative LPF (Negative); Crystals Negative HPF (Negative); Epithelial Cells Rare HPF (Negative); Mucus Trace (Negative); RBC 0-2 HPF (0-2); WBC Negative HPF (0-5)
[2024-08-17] MEDS: cefTRIAXone 2 GM/50 ML BAG IVPB (20:22)
[2024-08-17] MEDS: Doxycycline Hyclate 100 MG CAP PO (20:22)
[2024-08-17] MEDS: Oseltamivir 75 MG CAP PO (23:40)
[2024-08-18] VITALS (9 sets, daily range): BP systolic 120–159; BP diastolic 72–87; PULSE 56–65; RESP 16–19; TEMP 36.3–37.1; O2SAT 93–95
--- NOTE | 2024-08-18 00:34 | W.PC.ACHO ---
Registration Status: Primary Language: Preferred Language: ED Information & Data Chief Complaint AMS/LOC 08/17/24 19:19 Chief Complaint AMS/LOC 08/17/24 18:53 Triage Note sudden onset of expressive 08/17/24 18:53 aphasia generlaly unwell for 48 hours. 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 in the field Medical / Surgical History Elevated TSH Diverticulosis Ichthyosis vulgaris Bradycardia Chronic hoarseness Hyperactivity of bladder Hyperlipidemia Dysphagia GERD (gastroesophageal reflux disease) Obstructive sleep apnea Prediabetes Heavy alcohol consumption (Last Reviewed 07/01/22 @ 06:28 by Oliva Mireles) Hx of knee surgery History of colonoscopy History of shoulder surgery Most Recent Vital Signs Temperature 36.8 C 08/17/24 18:53 Pulse 63 08/17/24 23:46 Pulse 51 L 08/17/24 22:50 Respiratory Rate 15 08/17/24 22:50 Respiratory Effort Non-Labored 08/17/24 19:19 Respiratory Depth Normal 08/17/24 19:19 Respiratory Pattern Normal 08/17/24 19:29 Blood Pressure 157/74 H 08/17/24 23:46 Blood Pressure Mean 98 08/17/24 23:46 Pulse Oximetry 98 08/17/24 20:00 Pain Level 0 08/17/24 18:53 Allergies No Known Drug Allergies Allergy (Verified 08/17/24 18:52) Unknown Precautions Isolation Standard precaution 08/17/24 19:19 Active Medications Generic Name Dose Route Start Last Admin Trade Name Fredyq PRN Reason Stop Dose Admin Iohexol 70 ml 08/17/24 19:15 08/17/24 19:09 Omnipaque 350 Mg/Ml 100 Ml Btl IJ 09/16/24 23:59 70 ml DIRECTED JENA Administration Oseltamivir Phosphate 75 mg 08/17/24 23:07 08/17/24 23:40 Oseltamivir 75 Mg Cap PO 08/17/24 23:08 75 mg NOW STA Administration Sodium Chloride 50 ml 08/17/24 19:15 08/17/24 19:09 Normal Saline - Diluent 50 Ml Vial IJ 50 ml .FOR DI USE JENA Administration IV IV Catheter Type [Left Peripheral IV Antecubital] IV Catheter Type [Right Saline Lock Antecubital] IV Catheter Gauge [Left 18 Antecubital] IV Catheter Gauge [Right 18 Antecubital] Diet Orders Category Date Time Status Regular/Normal [DIET] Nutrition 08/18/24 Breakfast Active Diagnostics 08/18/24 08/17/24 08/17/24 Range/Units 05:35 21:53 20:00 WBC Pending (4.4-10.8) 10^3/uL RBC Pending (4.36-5.78) 10^6/uL Hgb Pending (13.5-17.5) g/dL Hct Pending (40.0-50.0) % MCV Pending (80-95) fL MCH Pending (27.0-33.0) pg MCHC Pending (32.0-36.0) % RDW Pending (11.8-14.1) % Plt Count Pending (130-400) 10^3/uL MPV Pending (8.0-11.0) fL Immature Gran % Pending % Neutrophils % Pending % Lymphocytes % Pending % Monocytes % Pending % Eosinophils % Pending % Basophils % Pending % Nucleated RBC % (0.0-0.3) % Absolute Neutrophils Pending (1.2-6.7) 10^3/uL Absolute Lymphocytes Pending (1.2-3.4) 10^3/uL Absolute Monocytes Pending (0.1-0.8) 10^3/uL Absolute Eosinophils Pending (0.0-0.7) 10^3/uL Absolute Basophils Pending (0.0-0.2) 10^3/uL RBC Morphology Sodium Pending (136-145) mmol/L Potassium Pending (3.5-5.1) mmol/L Chloride Pending (98-107) mmol/L Carbon Dioxide Pending (21.0-32.0) mmol/L Anion Gap Pending (3-11) mmol/L BUN Pending (7-18) mg/dL Creatinine Pending (0.70-1.30) mg/dL Est GFR (CKD-EPI 2020) Pending (mL/min/1.73m2) Glucose Pending (74-106) mg/dL Calcium Pending (8.5-10.1) mg/dL Magnesium Pending Total Bilirubin (0.2-1.0) mg/dL AST (15-37) U/L ALT (16-63) U/L Alkaline Phosphatase (46-116) U/L Creatine Kinase (39-308) U/L Troponin I Cancelled (<or=76) ng/L Total Protein (6.4-8.2) g/dL Albumin (3.4-5.0) g/dL Urine Color Yellow (Yellow) Urine Clarity Clear (Clear) Urine pH 6.0 (5-8) Ur Specific [place] 1.025 (1.005-1.025) Urine Protein 30 H (Neg-Trace) mg/dL Urine Ketones Negative (Negative) mg/dL Urine Blood Trace-intact H (Negative) Urine Nitrite Negative (Negative) Urine Bilirubin Negative (Negative) Urine Urobilinogen 0.2 (Up to 0.2) mg/dL Ur Leukocyte Esterase Negative (Negative) Urine RBC 0-2 (0-2) HPF Urine WBC Negative (0-5) HPF Ur Epithelial Cells Rare (Negative) HPF Urine Crystals Negative (Negative) HPF Urine Bacteria Rare (Negative) HPF Urine Casts Negative (Negative) LPF Urine Mucus Trace (Negative) Ur Culture Indicated? No Urine Glucose Negative (Negative) mg/dL Ethyl Alcohol (<10) mg/dL COVID-19 Source SARS-CoV-2 (PCR) (Negative) Influenza Type A (PCR) (Negative) Influenza Type B (PCR) (Negative) RSV (PCR) (Negative) Add-On Test Request 08/17/24 08/17/24 08/17/24 Range/Units 19:47 19:11 18:49 WBC 15.48 H (4.4-10.8) 10^3/uL RBC 5.10 (4.36-5.78) 10^6/uL Hgb 16.9 (13.5-17.5) g/dL Hct 49.0 (40.0-50.0) % MCV 96 H (80-95) fL MCH 33.1 H (27.0-33.0) pg MCHC 34.5 (32.0-36.0) % RDW 11.7 L (11.8-14.1) % Plt Count 160 (130-400) 10^3/uL MPV 10.5 (8.0-11.0) fL Immature Gran % 0.5 % Neutrophils % 84.2 % Lymphocytes % 5.0 % Monocytes % 10.1 % Eosinophils % 0.0 % Basophils % 0.2 % Nucleated RBC % 0.0 (0.0-0.3) % Absolute Neutrophils 13.03 H (1.2-6.7) 10^3/uL Absolute Lymphocytes 0.77 L (1.2-3.4) 10^3/uL Absolute Monocytes 1.56 H (0.1-0.8) 10^3/uL Absolute Eosinophils 0.00 (0.0-0.7) 10^3/uL Absolute Basophils 0.03 (0.0-0.2) 10^3/uL RBC Morphology Normal Sodium 138 (136-145) mmol/L Potassium 4.1 (3.5-5.1) mmol/L Chloride 101 (98-107) mmol/L Carbon Dioxide 26.4 (21.0-32.0) mmol/L Anion Gap 10.6 (3-11) mmol/L BUN 35 H (7-18) mg/dL Creatinine 1.5 H (0.70-1.30) mg/dL Est GFR (CKD-EPI 2020) 48.85 (mL/min/1.73m2) Glucose 151 H (74-106) mg/dL Calcium 8.9 (8.5-10.1) mg/dL Magnesium Total Bilirubin 1.66 H (0.2-1.0) mg/dL AST 14 L (15-37) U/L ALT 20 (16-63) U/L Alkaline Phosphatase 94 (46-116) U/L Creatine Kinase 115 (39-308) U/L Troponin I 14 15 (<or=76) ng/L Total Protein 7.7 (6.4-8.2) g/dL Albumin 3.7 (3.4-5.0) g/dL Urine Color (Yellow) Urine Clarity (Clear) Urine pH (5-8) Ur Specific [place] (1.005-1.025) Urine Protein (Neg-Trace) mg/dL Urine Ketones (Negative) mg/dL Urine Blood (Negative) Urine Nitrite (Negative) Urine Bilirubin (Negative) Urine Urobilinogen (Up to 0.2) mg/dL Ur Leukocyte Esterase (Negative) Urine RBC (0-2) HPF Urine WBC (0-5) HPF Ur Epithelial Cells (Negative) HPF Urine Crystals (Negative) HPF Urine Bacteria (Negative) HPF Urine Casts (Negative) LPF Urine Mucus (Negative) Ur Culture Indicated? Urine Glucose (Negative) mg/dL Ethyl Alcohol < 3.0 (<10) mg/dL COVID-19 Source NASOPHARYNX SARS-CoV-2 (PCR) Negative (Negative) Influenza Type A (PCR) Positive A (Negative) Influenza Type B (PCR) Negative (Negative) RSV (PCR) Negative (Negative) Add-On Test Request DONE 08/17/24 20:10 Blood Culture - Pending Blood 08/17/24 20:10 Blood Culture - Pending Blood Intake and Output - 24 Hour Total 08/17/24 18:41 thru 08/17/24 20:55 Intake Total 50 Balance 50 Weight 100 kg Intake: IV 50 Falls Risk Assessment History of Falls Previous History 08/17/24 19:19 Contributing Factors Confusion 08/17/24 19:19 Ambulatory Aids Independent 08/17/24 19:19 Tubes/Lines None 08/17/24 19:19 Gait Evaluation No gait disturbance 08/17/24 19:19 Cognition No cognitive impairment 08/17/24 19:19 Fall Total Score 18 08/17/24 19:19 Level of Risk Standard/Low Risk 08/17/24 19:19 Problems (Last Reviewed 07/01/22 @ 06:28 by Oliva Mireles) Community acquired pneumonia (Acute) Influenza A (Acute) v v v v v v v v v Sending and/or Receiving Nurses: Please use comment section below to note any information pertinent to the patient hand-off not included above. Information / Comments:Pt admitted to ER w/ headache confusion and aphagia. Neuro tele consult in ER, CT negative for brain bleed or ischemia att. Pt reports feeloing unwell for 48 hrs. Positive for Influenza A. Admit to med/surg unit at 1230 on 08/18/24. Pt arrived incontinent of bowels diarrhea in stretcher. Report received from: Sofiya ELISE, @ 1214 on 08/18/24
--- NOTE | 2024-08-18 00:54 | W.PM.HP.N ---
Date of service: 08/18/24 Time of Service: 00:54 Assessment and Plan Assessment and plan (1) Influenza A: Status: Acute Assessment and plan: This appears to be the primary infection Will treat with oseltamivir I talked with lab about sending H5N1 as he has contact with poultry. (2) Community acquired pneumonia: Status: Acute Assessment and plan: Focal pneumonia on imaging. Started on ceftriaxone and doxycycline to cover CAP, will continue. (3) Encephalopathy acute: Status: Acute Assessment and plan: Teleneurology notes reviewed suggesting more extensive work up including MRI and EEG and high dose IV thiamine. I think this is encephalopathy related to acute influenza and pneumonia so will treat this and monitor for now. (4) Urgency incontinence: Status: Acute Assessment and plan: chronic. On oxybutynin but I will hold this as it can affect mental status. (5) Ichthyosis vulgaris: Assessment and plan: continue topical therapy with ammonia lactate (6) Heavy alcohol consumption: Assessment and plan: He describes today and in recent PCP notes high risk levels of drinking but not alcohol use disorder. His current levels are negative c/w his history. oral thiamine, folate, MVI. Monitor with CIWA but I don't expect withdrawal (7) GERD (gastroesophageal reflux disease): Assessment and plan: With esophageal spasm. he takes prn diltiazem for this. (8) DVT prophylaxis: Status: Acute Assessment and plan: enoxaparin History of Present Illness History of Present Illness Chief Complaint: weakness, headache Narrative: 74 yo M with history of hyperlipidema, mild PARAMJIT not treated, who presented with some confusion and headache after two days of feeling cough, malaise, and generalized fatigue. He has had to miss work, which he rarely dose. He has not had appetite but his has been tryng to get him to drink fluids and bland food like toast, which he has kept down. He Has not noted fever or shortness of breath. Cough has been mostly dry. No nausea or vomiting. He has had some loose stools, though he can't say how many. Per EMS, they were called for confusion associated with headache and inability to speak around 4:30pm. He does not remember the episode and his was no longer in the room when I talked to him. He does still have a frontal dull headache. No neck pain or stiffness. No focal weakness or vision changes, his right eye has been lazy his whole life. He does say he has a couple drinks a night, but hasn't had alcohol for 3 days since getting sick. He denies history of withdrawal. He does have chickens in his yard. Some have recently. Review of Systems All systems reviewed & are unremarkable except as noted in HPI and below PFSH All Active Problems (Updated 08/18/24 @ 01:26 by Julio Vega) DVT prophylaxis (Acute) Encephalopathy acute (Acute) Community acquired pneumonia (Acute) Influenza A (Acute) Diverticulosis (Acute) Screening for colon cancer (Acute) Sensorineural hearing loss of both ears (Acute) Erectile dysfunction (Acute) Dysphonia (Acute 07/26/16) Frequency of urination (Acute 06/15/16) Incomplete tear of left rotator cuff (Acute 07/21/16) Urgency incontinence (Acute 06/15/16) Medical History Elevated TSH Diverticulosis Ichthyosis vulgaris Bradycardia Chronic hoarseness Hyperactivity of bladder Hyperlipidemia Dysphagia GERD (gastroesophageal reflux disease) Obstructive sleep apnea Prediabetes Heavy alcohol consumption Surgical History Hx of knee surgery History of colonoscopy History of shoulder surgery Social History (Updated 08/18/24 @ 01:27 by Julio Vega) Smoking/Tobacco Use Status: Former Tobacco Use Smoking risk assessment performed?: Yes Alcohol Intake: current Alcohol Intake frequency: 3 or more drinks per day Alcohol type: beer Drug use: Never Substance use type: does not use Housing: apartment Current gender identity: male Do you feel safe at home: Yes Do you feel safe in your relationship?: Yes Additional Social history: Lives with in [facility]. Dog and two cats. chickens. Meds Allergies and Home Medications Allergies Allergy/AdvReac Type Severity Reaction Status Date / Time No Known Drug Allergies Allergy Unknown Verified 08/17/24 18:52 Home Medications ?Medication ?Instructions ?Recorded ?Confirmed ?Type pantoprazole 40 mg tablet,delayed 40 mg PO DAILY 09/22/16 08/17/24 History release ammonium lactate 12 % topical cream 1 applic topical DAILY 10/02/18 08/17/24 History atorvastatin 20 mg tablet (Lipitor) 40 mg PO HS 10/02/18 08/17/24 History diltiazem HCl 60 mg tablet 60 mg PO TID 10/02/18 08/17/24 History oxybutynin chloride 5 mg tablet 5 mg PO TID PRN urgency #60 tabs 11/29/18 08/17/24 Rx sildenafil 100 mg tablet 100 mg PO DAILY PRN 09/12/19 08/17/24 History ibuprofen 200 mg capsule 400 mg PO .AM 06/16/22 08/17/24 History atorvastatin 40 mg tablet 40 mg PO QPM 08/17/24 08/17/24 History Exam Narrative Exam Narrative: GEN: Alert and oriented to self and place, could not remember month/day. Pleasant and cooperative, gives vague history. No acute distress at rest. HEENT: Head atraumatic. Conjunctiva clear, no icterus. PEERL, EOMI on left, right eye with ptosis and medial deviation (chronic). mild rhinorrhea. MMM, OP benign. Neck is supple with no masses or lymphadenopathy, trachea midline LUNGS: Normal effort. Crackle right mid lung field, no wheezing, left clear. speaking in full sentences CV: RRR with no murmurs, gallops, or rubs. ABD: active bowel sounds, soft, nontender and nondistended. No masses. EXT: no cyanosis, clubbing, or edema MSK: No joint redness or swelling NEURO: CN 2-12 intact except right eye movement/ptosis. Normal movement of 4 extremities. Normal speech and coordination. No tremor SKIN: Thjckened over both shins. No rash or open wounds. PSYCH: normal mood and affect, normal thought process, no hallucinations Results Imaging Chest x-ray: report reviewed (increased markings in the lower right lung field. Probably small area of infiltrate. There are no pleural effusion) CT scan - chest: report reviewed (1. There is significant patchy infiltrate evident in the right upper lobe. There are milder increased markings in the dependent aspect of the right lower lobe. Left lung is clear. 2. No pleural effusions and no intrathoracic adenopathy.) EKG: report reviewed and image reviewed (NSR with some PACs, nl axis, intervals. no STEMI. T waves negative precordial leads) Imaging Studies: CTA head: 1. Patent carotid arteries in the neck. No hemodynamically significant stenosis. 2. Patent vertebral arteries. Left vertebral artery is dominant. No evidence of significant vertebral artery stenosis nor dissection 3. Patent intracranial arteries. Also no evidence of aneurysms nor vascular malformations. 4. No CT evidence of acute territorial infarct nor intracranial hemorrhage. 5. Lowermost images of this study reveal some patchy lung infiltrate in the partially included right upper lobe. Labs 08/17/24 18:49 08/17/24 18:49 Labs: Laboratory Results - last 24 hr 08/17/24 08/17/24 08/17/24 18:49 19:11 19:47 WBC 15.48 H RBC 5.10 Hgb 16.9 Hct 49.0 MCV 96 H MCH 33.1 H MCHC 34.5 RDW 11.7 L Plt Count 160 MPV 10.5 Immature Gran % 0.5 Neutrophils % 84.2 Lymphocytes % 5.0 Monocytes % 10.1 Eosinophils % 0.0 Basophils % 0.2 Nucleated RBC % 0.0 Absolute Neutrophils 13.03 H Absolute Lymphocytes 0.77 L Absolute Monocytes 1.56 H Absolute Eosinophils 0.00 Absolute Basophils 0.03 RBC Morphology Normal Sodium 138 Potassium 4.1 Chloride 101 Carbon Dioxide 26.4 Anion Gap 10.6 BUN 35 H Creatinine 1.5 H Est GFR (CKD-EPI 2020) 48.85 Glucose 151 H Calcium 8.9 Total Bilirubin 1.66 H AST 14 L ALT 20 Alkaline Phosphatase 94 Creatine Kinase 115 Troponin I 15 14 Total Protein 7.7 Albumin 3.7 Urine Color Urine Clarity Urine pH Ur Specific [place] Urine Protein Urine Ketones Urine Blood Urine Nitrite Urine Bilirubin Urine Urobilinogen Ur Leukocyte Esterase Urine RBC Urine WBC Ur Epithelial Cells Urine Crystals Urine Bacteria Urine Casts Urine Mucus Ur Culture Indicated? Urine Glucose Ethyl Alcohol < 3.0 COVID-19 Source NASOPHARYNX SARS-CoV-2 (PCR) Negative Influenza Type A (PCR) Positive A Influenza Type B (PCR) Negative RSV (PCR) Negative Add-On Test Request DONE 08/17/24 08/17/24 20:00 21:53 WBC RBC Hgb Hct MCV MCH MCHC RDW Plt Count MPV Immature Gran % Neutrophils % Lymphocytes % Monocytes % Eosinophils % Basophils % Nucleated RBC % Absolute Neutrophils Absolute Lymphocytes Absolute Monocytes Absolute Eosinophils Absolute Basophils RBC Morphology Sodium Potassium Chloride Carbon Dioxide Anion Gap BUN Creatinine Est GFR (CKD-EPI 2020) Glucose Calcium Total Bilirubin AST ALT Alkaline Phosphatase Creatine Kinase Troponin I Cancelled Total Protein Albumin Urine Color Yellow Urine Clarity Clear Urine pH 6.0 Ur Specific [place] 1.025 Urine Protein 30 H Urine Ketones Negative Urine Blood Trace-intact H Urine Nitrite Negative Urine Bilirubin Negative Urine Urobilinogen 0.2 Ur Leukocyte Esterase Negative Urine RBC 0-2 Urine WBC Negative Ur Epithelial Cells Rare Urine Crystals Negative Urine Bacteria Rare Urine Casts Negative Urine Mucus Trace Ur Culture Indicated? No Urine Glucose Negative Ethyl Alcohol COVID-19 Source SARS-CoV-2 (PCR) Influenza Type A (PCR) Influenza Type B (PCR) RSV (PCR) Add-On Test Request Last Vital Signs Temp 36.8 C 08/17/24 18:53 Pulse 63 08/17/24 23:46 Resp 15 08/17/24 22:50 BP 157/74 H 08/17/24 23:46 Pulse Ox 98 08/17/24 20:00 Time Spent Time spent with Patient: >75 minutes Time was spent: preparing to see the patient(eg.review tests), obtaining and/or reviewing separately otained hiistory, ordering medications,tests, procedures, referring, communicating with other health career agent, indepentently interpreting results, counseling the patient and care coordination
[2024-08-18] MEDS: Ibuprofen 600 MG TAB PO ×2 (02:34→23:58)
[2024-08-18 07:35] LABS: Abs Immature Grans 0.04 10^3/uL (0.0-0.06); Absolute Basophil Count 0.01 10^3/uL (0.0-0.2); Absolute Eosinophil Count 0.11 10^3/uL (0.0-0.7); Absolute Lymphocyte Count 0.99 10^3/uL (1.2-3.4); Absolute Monocyte Count 1.23 10^3/uL (0.1-0.8); Absolute Neutrophil Count 7.17 10^3/uL (1.2-6.7); Basophils % 0.1 %; Eosinophils % 1.2 %; HCT 46.5 % (40.0-50.0); HGB 16.3 g/dL (13.5-17.5); Immature Grans % 0.4 %; Lymphocytes % 10.4 %; MCH 33.1 pg (27.0-33.0); MCHC 35.1 % (32.0-36.0); MCV 94 fL (80-95); MPV 10.9 fL (8.0-11.0); Monocytes % 12.9 %; Platelet Count 160 10^3/uL (130-400); RBC 4.93 10^6/uL (4.36-5.78); RDW 11.9 % (11.8-14.1); RDW-SD 41.3 fL; WBC 9.55 10^3/uL (4.4-10.8)
[2024-08-18 07:57] LABS: Anion Gap 8.2 mmol/L (3-11); BUN 41 mg/dL (7-18); CO2 25.8 mmol/L (21.0-32.0); CREATININE 1.4 mg/dL (0.70-1.30); Calcium 8.9 mg/dL (8.5-10.1); Chloride 103 mmol/L (98-107); Estimated GFR 53.07 (mL/min/1.73m2); Glucose 118 mg/dL (74-106); Magnesium 2.5 mg/dL (1.8-2.4); Sodium 137 mmol/L (136-145)
[2024-08-18 08:02] LABS: Calculated LDL 115 mg/dL (<100); Cholesterol 168 mg/dL (<200); HDL Cholesterol 38 mg/dL (40-60); Hemoglobin A1C 5.8 % (<5.7); Triglyceride 79 mg/dL (<150)
[2024-08-18] MEDS: Enoxaparin 40 MG/0.4 ML SYR SC (08:15)
[2024-08-18] MEDS: Lachydrin 12% LOTION 225 GM BTL TP (08:15)
[2024-08-18] MEDS: Folic Acid 1 MG TAB PO (08:16)
[2024-08-18] MEDS: Multivitamin TAB 1 TAB PO (08:16)
[2024-08-18] MEDS: Doxycycline Hyclate 100 MG CAP PO ×2 (08:17→21:38)
[2024-08-18] MEDS: Pantoprazole 40 MG TABCR PO (08:17)
[2024-08-18] MEDS: Thiamine 100 MG TAB PO (08:17)
[2024-08-18] MEDS: Oseltamivir 75 MG CAP PO ×2 (09:52→21:37)
--- NOTE | 2024-08-18 14:58 | RESPIRATORY ---
Pt advised he does not have CPAP/BiPAP machine for PARAMJIT
--- NOTE | 2024-08-18 17:51 | PDOC.CMIN ---
Date of service: 08/18/24 Time of Service: 17:51 Care Management Initial Assmt Initial Assessment Reason for Hospitalization: Influenza A, pneumonia Functional Status/Living Situation Patient Presentation: Per report, Kyler was brought to the ED due to confusion after having symptoms for a few days. He tested positive for influenza A, and per report, there is some concern for H5N1 due to his potential exposure to poultry. Per report, he is a daily drinker, but has not had alcohol for a few days due to not feeling well. He is being closely monitored and symptoms are being treated. CM will continue to follow. Town of Residence: [facility] Resides with: Spouse Natural Supports: , [employer] Employment Status: Employed Instrumental Activities of Daily Living (ADLs): Independent Medications Medication Management: No Issues/Barriers identified Advance Directives Advance Directives: Do you have an Advance Directive: N 02/23/22 14:41 AD On File at [facility]: N 02/23/22 14:41 Date Asked 08/17/24 08/17/24 19:01 AD Date Reviewed COLST On File at [facility] COLST Date Scanned Code Status Resuscitation Status Full Code Insurance Coverage/Financial Issues Insurance: /[facility] advantage Care Team Visit Care Team Role Provider Type Rebecca Beltrán MD Primary Care Provider [facility] STAFF PHYSICIAN Julio Avila MD Emergency Provider [facility] STAFF PHYSICIAN Julio Vega Admit Provider [facility] STAFF PHYSICIAN Attending Provider Discharge Potential Discharge Needs: PCP F/U Appt Anticipated Barriers to Discharge: None Identified Patient/Family Education Needs: Review discharge instructions, discuss Ask Me Three Transportation: Private vehicle Plan: Anticipate Kyler will return home once medically cleared. His will drive him home via private vehicle. He will follow up with his PCP and discharge plan of care. CM will continue to follow. Social Determinants of Health Screening Social Determinants of Health last assessed: 08/18/24 Will the Patient Participate in the Screening?: Yes Do you worry about having a steady place to live?: no Problems where you live: no known problems In the past 12 months, have you had to go without electric, gas, oil or water in your home?: no Have you or anyone in your house had to go without enough food to eat?: no Has lack of transportation kept you from medical appointments or from doing things needed for daily living?: no Has anyone in your life made you feel unsafe or unsupported?: no How hard is it for you to pay for the very basics like food, housing, medical care, and heating? Would you say it is:: Not hard at all Do you want help finding or keeping work or a job?: I do not need or want help If for any reason you need help with day-to-day activities such as bathing, preparing meals, shopping, managing finances, etc., do you get the help you need?: I don?t need any help How often do you feel lonely or isolated from those around you?: Never Do you speak a language other than Panamanian at home?: No Does the patient want assistance with any of the above?: No PFSH All Active Problems (Updated 08/18/24 @ 01:26 by Julio Vega) DVT prophylaxis (Acute) Encephalopathy acute (Acute) Community acquired pneumonia (Acute) Influenza A (Acute) Diverticulosis (Acute) Urgency incontinence (Acute 06/15/16) Incomplete tear of left rotator cuff (Acute 07/21/16) Frequency of urination (Acute 06/15/16) Dysphonia (Acute 07/26/16) Erectile dysfunction (Acute) Sensorineural hearing loss of both ears (Acute) Screening for colon cancer (Acute) Medical History Elevated TSH Diverticulosis Ichthyosis vulgaris Bradycardia Chronic hoarseness Hyperactivity of bladder Hyperlipidemia Dysphagia GERD (gastroesophageal reflux disease) Obstructive sleep apnea Prediabetes Heavy alcohol consumption Surgical History Hx of knee surgery History of colonoscopy History of shoulder surgery Social History (Updated 08/18/24 @ 01:27 by Julio Vega) Smoking/Tobacco Use Status: Former Tobacco Use Smoking risk assessment performed?: Yes Alcohol Intake: current Alcohol Intake frequency: 3 or more drinks per day Alcohol type: beer Drug use: Never Substance use type: does not use Housing: apartment Current gender identity: male Do you feel safe at home: Yes Do you feel safe in your relationship?: Yes Additional Social history: Lives with in [facility]. Dog and two cats. chickens.
[2024-08-18] MEDS: cefTRIAXone 2 GM/50 ML BAG IVPB (21:36)
[2024-08-18] MEDS: Normal Saline Flush 10 ML SYR IVP (21:37)
[2024-08-18] MEDS: Atorvastatin 20 MG TAB 40 MG PO (21:38)
[2024-08-19 03:13] VITALS: BP 120/61; PULSE 69; RESP 17; TEMP 36.4; O2SAT 98
[2024-08-19 08:06] VITALS: BP 137/88; PULSE 58; RESP 18; TEMP 36.3; O2SAT 98
[2024-08-19] MEDS: Folic Acid 1 MG TAB PO (08:07)
[2024-08-19] MEDS: Pantoprazole 40 MG TABCR PO (08:07)
[2024-08-19] MEDS: Doxycycline Hyclate 100 MG CAP PO ×2 (08:07→19:55)
[2024-08-19] MEDS: Enoxaparin 40 MG/0.4 ML SYR SC (08:07)
[2024-08-19] MEDS: Multivitamin TAB 1 TAB PO (08:08)
[2024-08-19] MEDS: Oseltamivir 75 MG CAP PO ×2 (08:08→19:56)
[2024-08-19] MEDS: Thiamine 100 MG TAB PO (08:08)
[2024-08-19] MEDS: Lachydrin 12% LOTION 225 GM BTL TP (08:13)
[2024-08-19 11:38] VITALS: BP 120/74; PULSE 55; RESP 18; TEMP 36.8; O2SAT 94
[2024-08-19 14:23] VITALS: BP 141/68; PULSE 61; RESP 18; TEMP 36.8; O2SAT 96
--- NOTE | 2024-08-19 14:48 | PGE_ITS ---
Date of Service Date of service: 08/19/24 Time of Service: 14:49 Assessment and Plan Assessment and plan (1) Influenza A: Status: Acute Assessment and plan: continue oseltamivir lab sending H5N1 as he has contact with poultry. (2) Community acquired pneumonia: Status: Acute Assessment and plan: Focal pneumonia on imaging. continue ceftriaxone and doxycycline day 2/5 (3) Encephalopathy acute: Status: Resolved Assessment and plan: Teleneurology notes reviewed suggesting more extensive work up including MRI and EEG and high dose IV thiamine. it was thought this is encephalopathy related to acute influenza and pneumonia which is being treated and now resolved. (4) Urgency incontinence: Status: Acute Assessment and plan: chronic. On oxybutynin which is on hold as it can affect mental status. (5) Ichthyosis vulgaris: Assessment and plan: continue topical therapy with ammonia lactate (6) Heavy alcohol consumption: Assessment and plan: He describes today and in recent PCP notes high risk levels of drinking but not alcohol use disorder. His current levels are negative c/w his history. oral thiamine, folate, MVI. Monitor with CIWA but I don't expect withdrawal (7) GERD (gastroesophageal reflux disease): Assessment and plan: With esophageal spasm. he takes prn diltiazem for this. (8) DVT prophylaxis: Status: Acute Assessment and plan: enoxaparin Discussed with DR Sullivan Subjective Subjective Patient reports: tolerating liquids well, voiding w/o difficulty and afebrile; denies tolerating a regular diet (poor appetite) or shortness of breath Exam Narrative Exam Narrative: Elderly gentleman of stated age no acute distress skin is pink warm dry well- perfused head atraumatic normocephalic eyes nonicteric noninjected oral mucosa is moist cardiovascular regular rate and rhythm respirations even and unlabored breath sounds are clear bilaterally no rhonchi appreciated abdomen is soft extremities without edema moves all extremities Objective Last Vital Signs Temp 36.8 C 08/19/24 14:23 Pulse 61 08/19/24 14:23 Resp 18 08/19/24 14:23 BP 141/68 H 08/19/24 14:23 Pulse Ox 96 08/19/24 14:23 PAWSS Have you Been Recently Intoxicated or Drunk Within the Last 30 days?: No Have you Ever Experienced Previous Episodes of Alcohol Withdrawal?: No Have you ever Experienced Withdrawal Seizures?: No Have you ever Experienced Delirium Tremens(DT)s?: No Have you ever undergone Alcohol Rehabilitation Treatment (i.e, inpt ot outpatient treatment programs)?: No Have you ever Experienced Blackouts?: No Have you ever Combined Alcohol with other Downers within the last 90 days?: No Have you ever Combined Alcohol with any other Substance of Abuse during the last 90 days?: No Positive Blood Alcohol level on Presentation? [PCS.BAL]: No Evidence of Increased Autonomic Activity (i.e. HR>120, tremor, sweating, agitation, nausea)?: No Result: 0 Time Spent with Patient Time Spent with Patient: 35-49 minutes Time was spent: preparing to see the patient(eg.review tests), obtaining and/or reviewing separately otained hiistory, ordering medications,tests, procedures, indepentently interpreting results and counseling the patient
[2024-08-19 19:31] VITALS: BP 134/77; PULSE 58; RESP 18; TEMP 37.3; O2SAT 97
[2024-08-19] MEDS: Atorvastatin 20 MG TAB 40 MG PO (19:55)
[2024-08-19] MEDS: Normal Saline Flush 10 ML SYR IVP (19:56)
[2024-08-20] MEDS: cefTRIAXone 2 GM/50 ML BAG IVPB (00:42)
[2024-08-20 00:47] VITALS: BP 127/71; RESP 16; TEMP 36.3; O2SAT 94
[2024-08-20 07:56] VITALS: BP 132/69; PULSE 64; RESP 17; TEMP 36.9; O2SAT 97
[2024-08-20] MEDS: Normal Saline Flush 10 ML SYR IVP (08:25)
[2024-08-20] MEDS: Thiamine 100 MG TAB PO (08:26)
[2024-08-20] MEDS: Doxycycline Hyclate 100 MG CAP PO (08:26)
[2024-08-20] MEDS: Oseltamivir 75 MG CAP PO (08:26)
[2024-08-20] MEDS: Enoxaparin 40 MG/0.4 ML SYR SC (08:26)
[2024-08-20] MEDS: Folic Acid 1 MG TAB PO (08:26)
[2024-08-20] MEDS: Pantoprazole 40 MG TABCR PO (08:26)
[2024-08-20] MEDS: Lachydrin 12% LOTION 225 GM BTL TP (08:27)
[2024-08-20] MEDS: Multivitamin TAB 1 TAB PO (08:27)
--- NOTE | 2024-08-20 11:09 | DSE_ITS ---
Date of service: 08/20/24 Time of Service: 16:30 DS: Diagnosis Discharge Diagnosis (1) Influenza A: Status: Acute (2) Community acquired pneumonia: Status: Acute (3) Encephalopathy acute: Status: Resolved (4) Urgency incontinence: Status: Acute (5) Ichthyosis vulgaris: (6) Heavy alcohol consumption: (7) GERD (gastroesophageal reflux disease): (8) DVT prophylaxis: Status: Acute Discharge Plan Disposition Patient Disposition: Home Condition: Improving Discharge Details Reason For Visit: influenza A, pneumonia Admit Date/Time: 08/17/24 22:57 Admit Provider: Julio Vega Attending Provider: Julio Vega Primary Care Provider: Rebecca Beltrán [facility] Course Hospital Course: This 74 years old male patient with past medical history of hyperlipidemia, mild obstructive sleep apnea not treated currently presented to the ED via EMS on 08/17/2024 for evaluation of confusion, frontal headache status post 2 days of nonproductive cough, malaise and increased fatigue for which he had to be off work. As per EMS the patient was unable to verbally express himself during initial encounter but was unable to remember this episode on arrival to the ED. Patient reported having chicken in his yard with some dying recently. The patient presented normotensive without tachycardia or tachypnea had no additional oxygen requirement. Workup in the ED was significant for positive influenza A. CT resulted in findings of significant patchy infiltrate evident in the right upper lobe with leukocytosis at 15. Head CT was negative for any acute findings of territorial infarct or intracranial hemorrhage. Patient presented to the hospitalist service for evaluation and management of influenza A infection, right upper lobe pneumonia and infectious encephalopathy. During the stay, the patient continued to receive ceftriaxone and doxycycline. Hospitalist initiated testing process for H5N1 in the setting of poultry dying at the patient's house. Today, upon following with [facility] department, Ina Bullock house mover, was determined that the influenza A strain virus was the seasonal flu on preliminary report with recommendations for standard influenza precaution at discharge. Recommendation is to maintain precaution with surgical mask for 7 days from the 08/17/2024 or ongoing symptoms; whichever one is longer. If the patient continued to have symptoms after 7 days he should maintain precautions. Blood cultures were negative x 48 hours. The patient will be discharged home on oral doxycycline and cefpodoxime as well as Tamiflu to complete treatment initiated as an inpatient. The patient will need to follow-up with his primary care practitioner within 7 days of discharge. Chronic conditions were treated as per outpatient medicine regimen. Folic acid, thiamine were added to the patient's regimen after reviewing the history of alcohol intake and encephalopathy. Encephalopathy is most likely due to the viral infection. Discussed with Dr. Adrian Home Meds and New Rx's Prescriptions: New doxycycline hyclate 100 mg Capsule 100 mg PO BID Qty: 4 0RF folic acid 1 mg Tablet 1 mg PO DAILY Qty: 30 0RF oseltamivir 75 mg Capsule 75 mg PO BID Qty: 7 0RF thiamine mononitrate (vit B1) [Vitamin B-1 (mononitrate)] 100 mg Tablet 100 mg PO DAILY Qty: 30 0RF cefpodoxime 200 mg tablet 200 mg PO Q12H Qty: 4 0RF Rx Instructions: must administer with a meal/food Continued oxybutynin chloride 5 mg tablet 5 mg PO TID PRN (Reason: urgency) Qty: 60 11RF ibuprofen 200 mg capsule 400 mg PO .AM ammonium lactate 12 % cream 1 applic TP DAILY diltiazem HCl 60 mg tablet 60 mg PO TID sildenafil 100 mg tablet 100 mg PO DAILY PRN pantoprazole 40 MG tablet,delayed release (DR/EC) 40 mg PO DAILY atorvastatin [Lipitor] 20 mg tablet 40 mg PO HS atorvastatin 40 mg tablet 40 mg PO QPM Patient Comments: TAKE ONE TABLET BY MOUTH EVERY DAY Discharge Instructions Referrals: Rebecca Beltrán MD [Primary Care Provider] - (Office will call tomorrow morning (08/21/24) to make a follow up appointment. ) Activity:: Activity as Tolerated Equipment/Supplies:: No Equipment Needed Diet:: Heart healthy Discharge Orders Discharge Orders: Discharge Order (Routine); Ordered 08/20/24 Ordered By: Chetna Orourke DS: Summary Time Spent with Patient providing and/or coordinating discharge services: Greater than 30 minutes Status at Discharge Functional status at discharge: independent ambulation Overall status at discharge: patient is progressing back to baseline Mental Status: mental status grossly normal Speech and Movement: speech and movement normal Mood: congruent mood Affect: normal affect Quality:SDOH Health Related Social Needs: Health related social needs housing instability, house d, with risk of homelessness (Z59.811) Exam Narrative Exam Narrative: Constitutional The patient is lying in bed comfortable and cooperative during the interview. The patient is without acute distress HENMT: Facial structures with normal appearance Neuro:alert and oriented to self, person, place, time and situation. No neurological focal deficit Resp: Speaks in full sentences, unlabored breathing, clear lung bilaterally except for scattered ronchi base Cardio: regular rhythm, S1, S2, positive pulses to all 4 extremities GI: Abdomen is not distended, soft and non tender, bowel sounds are present Integumentary: No skin lesions or rash Extremities: Moves all 4 extremities Psych: RASS 0, congruent mood and normal affect. Psych Mental Status: mental status grossly normal Speech and Movement: speech and movement normal Mood: congruent mood Affect: normal affect DS: Data Vitals/I&O Vitals and I&O: Vital Signs Temperature 36.9 C 08/20/24 07:56 Temperature Source Tympanic 08/20/24 07:56 Pulse 64 08/20/24 07:56 Pulse Rhythm Regular 08/18/24 00:38 Pulse 51 L 08/17/24 22:50 Respiratory Rate 17 08/20/24 07:56 Respiratory Effort Normal 08/18/24 00:38 Respiratory Depth Normal 08/18/24 00:38 Respiratory Pattern Normal 08/18/24 00:38 Blood Pressure 132/69 08/20/24 07:56 Blood Pressure Mean 98 08/17/24 23:46 Pulse Oximetry 97 08/20/24 07:56 Oxygen Delivery Method Room Air 08/20/24 07:56 Oxygen Flow Rate 0 08/20/24 07:56 Pain Level 0 08/20/24 07:56 Intake & Output 08/19/24 08/19/24 08/20/24 11:59 23:59 11:59 Intake Total 780 / 780 Output Total 1100 / 1600 500 / 1600 Balance -320 / -820 -500 / -820 Intake: IV 30 / 30 Oral 750 / 750 Output: Urine 1100 / 1600 500 / 1600 Other: Urine Color Straw Yellow Urine Appearance Cloudy Clear Urine Odor Normal Normal Comment pT voided independently in AM Data Completed and Pending Labs on day of discharge: Preliminary micro results at discharge 08/17/24 20:10 Blood Culture - Preliminary Blood NO GROWTH 48 HOURS 08/17/24 20:10 Blood Culture - Preliminary Blood NO GROWTH 48 HOURS PFSH All Active Problems (Updated 08/19/24 @ 14:56 by Lori Chandra NP) DVT prophylaxis (Acute) Community acquired pneumonia (Acute) Influenza A (Acute) Diverticulosis (Acute) Urgency incontinence (Acute 06/15/16) Incomplete tear of left rotator cuff (Acute 07/21/16) Frequency of urination (Acute 06/15/16) Dysphonia (Acute 07/26/16) Erectile dysfunction (Acute) Sensorineural hearing loss of both ears (Acute) Screening for colon cancer (Acute) Medical History Elevated TSH Diverticulosis Ichthyosis vulgaris Bradycardia Chronic hoarseness Hyperactivity of bladder Hyperlipidemia Dysphagia GERD (gastroesophageal reflux disease) Obstructive sleep apnea Prediabetes Heavy alcohol consumption Surgical History Hx of knee surgery History of colonoscopy History of shoulder surgery Social History (Updated 08/18/24 @ 01:27 by Julio Vega) Smoking/Tobacco Use Status: Former Tobacco Use Smoking risk assessment performed?: Yes Alcohol Intake: current Alcohol Intake frequency: 3 or more drinks per day Alcohol type: beer Drug use: Never Substance use type: does not use Housing: apartment Current gender identity: male Do you feel safe at home: Yes Do you feel safe in your relationship?: Yes Additional Social history: Lives with in [facility]. Dog and two cats. chickens. Time Spent with Patient Time Spent with Patient: 70-84 minutes4 Time was spent: preparing to see the patient(eg.review tests), obtaining and/or reviewing separately otained hiistory, ordering medications,tests, procedures, referring, communicating with other health career technology teacher, indepentently interpreting results, counseling the patient and care coordination
--- NOTE | 2024-08-20 16:22 | PDOC.CMDIS ---
Date of service: 08/20/24 Time of Service: 16:22 LACE Index Scoring Tool Questions: Length of Stay (in days): 3 Was the patient admitted via the E.D.?: Yes E.D. Visits: 0 Answers: Total Score: 6 Risk of Readmission: Low Risk Care Management Discharge Plan Reason for Hospitalization: Influenza A, pneumonia Discharge Plan: Kyler will return home with no new services. His will drive him home via private vehicle. He will follow up with his PCP and discharge plan of care. Patient/Family Education Needs: Review discharge instructions and limitations, discussion of self care needs including ask me three. [facility] Health Related Social Needs: Health related social needs housing instability, housed, with risk of homelessness (Z59.431)
[2024-08-23 09:23] LABS: Influenza A PCR Positive (Negative)
== END 2024-08-20 18:43 | disposition home or self-care (01) | DRG 194 ==
LOC: ER 23:15 → MS 08-18 00:27
PROVIDERS: Admitting Provider Family Medicine; Emergency Provider Emergency Medicine; PCP Family Medicine; Visit Provider Family Medicine
DX: J10.1 Influenza due to other identified influenza virus with other respiratory manifestations (principal); G93.40 Encephalopathy, unspecified; J18.9 Pneumonia, unspecified organism; N39.41 Urge incontinence; Q80.0 Ichthyosis vulgaris; K21.9 Gastro-esophageal reflux disease without esophagitis; M62.81 Muscle weakness (generalized); F10.90 Alcohol use, unspecified, uncomplicated; G47.33 Obstructive sleep apnea (adult) (pediatric); R51.9 Headache, unspecified; H90.3 Sensorineural hearing loss, bilateral; E78.5 Hyperlipidemia, unspecified; R73.03 Prediabetes; R49.0 Dysphonia
CPT/HCPCS: 00123; 36415; 70496; 70498; 71250; 80048; 80053; 80061; 82550; 87040; 87637; 93005; 96365; 99285; J1650; 71045; 80320; 81003; 81015; 83036; 83735; 84484; 85025; 93010; 99223; 99233; 99239; J0696; J3490

== ENCOUNTER 2025-03-20 11:57 | Outpatient (REF) | payer MEDICARE, SELFPAY ==
[2025-03-20 17:29] LABS: Hemoglobin A1C 5.7 % (<5.7)
[2025-03-20 17:33] LABS: Anion Gap 7.9 mmol/L (3-11); BUN 21 mg/dL (7-18); CO2 29.1 mmol/L (21.0-32.0); Calcium 8.8 mg/dL (8.5-10.1); Chloride 104 mmol/L (98-107); Estimated GFR 70.88 (mL/min/1.73m2); Glucose 104 mg/dL (74-106); Potassium 4.4 mmol/L (3.5-5.1); Sodium 141 mmol/L (136-145); TSH (W/Ref FT4) 3.81 uIU/mL (0.36-3.74); Vitamin B12 253 pg/mL (193-986)
[2025-03-21 10:15] LABS: Syphilis Serology (RPR) Negative (Negative)
== END 2025-03-20 11:58 | disposition home or self-care (01) ==
LOC: NCHCN 11:57
PROVIDERS: PCP Family Medicine; Visit Provider Family Medicine
DX: R73.03 Prediabetes (principal); E02 Subclinical iodine-deficiency hypothyroidism
CPT/HCPCS: 80048; 82607; 83036; 84439; 84443; 86592